=== PATIENT | male | born 1965 | race Two or more races ===

== ENCOUNTER 2023-07-17 08:15 | Emergency (ER) | payer MEDICAID, SELFPAY ==
--- NOTE | 2023-07-17 08:18 | ED.GENADUL_ITS ---
Discharge Plan Disposition Patient Disposition: Home Condition: Stable Discharge Details Clinical Impression: Right sided sciatica Primary Care Provider: None,None ED Provider: Art Aguilar Home Meds and New Rx's Prescriptions: New naproxen [Naprosyn] 500 mg tablet 500 mg PO BID Qty: 30 0RF Discontinued ibuprofen [Advil] 200 mg tablet 800 mg PO DAILY Discharge Instructions Instructions: Sciatica (ED) Additional Instructions: It appears as though you have right-sided sciatica. Cool and/or warm compresses every 2 hours for 20 minutes. A prescription for naproxen has been sent, please take as directed. You may also use [id number] Lidoderm patches and Tylenol as directed. Gentle stretching as tolerated. Please watch for new or worsening symptoms and return to the ER for any concerns. As we discussed, I do recommend contacting your primary care provider to make them aware of your ER visit and need for outpatient follow-up. Regarding your chronic back pain and herniated disc, I do recommend that you get a referral through your primary care provider to [facility] as it sounds as though you are unhappy with your care in [place]. Stand Alone Forms: Work Release HPI General Mode of arrival: ambulatory . Date/Time Provider Initiated Documentation: 07/17/23 08:18 . Limitations to Documentation: no limitations . Information obtained by: patient . History of Present Illness 57 year old M presents to the emergency department with the chief complaint of Right sided leg pain, described as moderate, with intensity rated at 6. Quality is described as aching and sharp, and is localized to the right and lower extremity. Patient extremity. Patient started experiencing this year(s) (2) and it has been intermittent. No relieving factors improve symptom(s), Movement worsens symptoms . Patient notes other (Right foot paresthesias). Patient did receive the following treatments prior to arrival, NSAID (Occasional) Related Data Home Medications Medication Instructions Recorded Confirmed naproxen 500 mg tablet (Naprosyn) 500 mg PO BID #30 tabs 07/17/23 Previous Rx's Medication Instructions Recorded naproxen 500 mg tablet (Naprosyn) 500 mg PO BID #30 tabs 07/17/23 Allergies Allergy/AdvReac Type Severity Reaction Status Date / Time No Known Allergies Allergy Unverified 07/17/23 08:25 Review of Systems Constitutional Constitutional: Denies fever(s) Cardiovascular Cardiovascular: Denies chest pain, Denies leg edema and Denies dyspnea Respiratory Respiratory: Denies dyspnea Gastrointestinal Gastrointestinal: Denies fecal incontinence Genitourinary Genitourinary: Denies urinary hesitancy and Denies urinary incontinence Musculoskeletal Musculoskeletal: Reports back pain, Denies numbness and Reports tingling Integumentary/Breasts Skin/Breast: Denies erythema Neurologic Neurologic: Denies numbness, Reports tingling and Reports paresthesias (Right lower extremity) Exam Const General: cooperative, healthy appearing, comfortable and no acute distress Orientation: alert, awake and oriented x3 [facility] Head: normal to inspection, normocephalic and atraumatic Mouth: moist mucous membranes Eyes Conjunctivae: conjunctivae normal Neck Neck: normal visual inspection, trachea midline and supple Resp Effort & Inspection: normal respiratory effort and able to speak in complete sentences Cardio Rate: regular rate Rhythm: regular rhythm GI Palpation: soft and nontender Back/Spine/Pelvis Back: no CVA tenderness Thoracic/Lumbar Spine: No paraspinal tenderness, No lumbar spinal tenderness, straight leg raise positive (Bilaterally, right worse than left) and other (No midline point tenderness) Pelvis: sciatic notch tenderness on the right Skin General skin exam: no rashes or lesions noted Neuro General: patient alert, patient awake, patient oriented x3, moves all extremities and no focal motor deficits Cognition: normal cognition Speech: speech normal Gait: normal gait Motor: muscle tone normal throughout Sensory Exam: no sensory deficits noted (Sensation intact to light touch.) and other (Patient reports subjective ulcer sensation distal right foot) Extrem General: normal to inspection, full ROM, capillary refill normal, no pedal edema and no calf tenderness Right lower extremity: normal to inspection, full ROM and normal capillary refill (2+ pedal pulse) Psych Appearance: grossly normal Mental Status: mental status grossly normal Medical Decision Making This is a 57-year-old gentleman who reports that he recently moved to this area and has established a PCP but has not had his initial visit yet. He reports chronic low back pain, left worse than right, most of his life. He states that he was diagnosed with lumbar herniated disks for which he saw neurosurgery, states that surgery was recommended but he deferred. He has had previous back i njections which have helped significantly with his discomfort. Today he is reporting right posterior deep buttocks pain that travels down the posterior and lateral aspect of his upper leg and feels like a burning sensation. This has been intermittent over several years and he has never had this evaluated. More recently over the last several months he has noticed it now travels down his entire leg and goes into his foot, causing paresthesias to his distal right foot and all digits. He denies any trauma. He denies any fever, chest pain, shortness of breath, change in bowel or bladder habits, urinary retention, bowel or bladder incontinence. He denies any true numbness or focal weakness. Does admit to paresthesias as above. He states his pain is worse with movement and worse with being on his feet all day long. He was at work this morning, his employer recommended going to the ER for evaluation. He denies any drug use. Clinically he appears well, nontoxic, ambulates steadily. Neuro, vascular, tendon intact right lower extremity. No evidence of cauda equina. Extremely low suspicion for epidural abscess. No evidence of trauma, no indication to pursue advanced imaging. Symptoms are not bilateral, no involvement of the upper extremities, believe his paresthesias are secondary to sciatica, less likely the primary neuropathy. Discussed in length that his symptoms are most consistent with acute right-sided sciatica. Recommend anti-inflammatory, Naprosyn prescription provided. Discussed [id number] Tylenol, Lidoderm patches, gentle stretching, cool and/or warm compresses. We also discussed that this could be progression of his known herniated disks. Recommend PCP follow- up, recommend he contact them later today to make them aware of his ER visit and need for outpatient reevaluation. We did discuss that if symptoms were to persist that potential steroid burst, additional advanced imaging of his lumbar spine, possible injection, etc. were all possible treatment modalities. Also discussed that if he would like to reconsider the potential lumbar back surgery or would like a second opinion, recommend referral be sent from his PCP to [facility] spine. Standard discharge and return precautions were provided. Patient understands, is agreeable to this plan, and has no additional questions or concerns upon discharge. He was encouraged to watch for any new or evolving symptoms and return immediately to the ER. Work note for today provided. This documentation was generated using [employer] Watchation system, please disregard any oddities of phrase or misspellings. Medical Records Medical records narrative: No prior records for review Quality:[facility] Health Related Social Needs: No Data to Display PFSH All Active Problems Right sided sciatica (Acute) Social History Smoking/Tobacco Use Status: Current every day Tobacco Type: cigarettes Smoking risk assessment performed?: Yes Alcohol Intake: never Drug use: Never Substance use type: does not use
[2023-07-17 08:22] VITALS: BP 130/81; PULSE 88; RESP 17; TEMP 36; O2SAT 97
== END 2023-07-17 08:55 | disposition home or self-care (01) ==
PROVIDERS: Emergency Provider Physician Assistant
DX: M54.31 Sciatica, right side (principal); F17.210 Nicotine dependence, cigarettes, uncomplicated
CPT/HCPCS: 99283

== ENCOUNTER 2023-08-21 10:48 | Emergency (ER) | payer MEDICAID, SELFPAY ==
[2023-08-21 10:51] VITALS: BP 130/96; PULSE 93; RESP 18; TEMP 36.3; O2SAT 96
--- NOTE | 2023-08-21 11:26 | W.ED.GENAD ---
Discharge Plan Disposition Patient Disposition: Home Condition: Stable Discharge Details Clinical Impression: Acute right-sided back pain with sciatica ED Provider: Deshawn Pham Home Meds and New Rx's Prescriptions: New lidocaine 5 % adhesive patch,medicated 1 patch topical DAILY Qty: 15 0RF Rx Instructions: leave on most painful area for up to 12 hrs naproxen [Naprosyn] 500 mg tablet 500 mg PO BID Qty: 60 0RF Discharge Instructions Instructions: Sciatica (ED), Lower Back Exercises (ED) Additional Instructions: Please take naproxen as prescribed. Do not take Advil if you are taking naproxen. Please take acetaminophen (tylenol) - 650mg every 6 hours by mouth as needed for pain. Use lidocaine patches as prescribed. Please contact your primary care physician to arrange follow-up. Please follow-up with physical therapy. Avoid activities that worsen pain. Return to the ER immediately for any worsening or new concerning symptoms. Stand Alone Forms: Physical Therapy Referral, Work Release Referrals: [facility] [Provider Group] Discharge Data Discharge Date/Time-TO BE ENTERED AT DEPARTURE: 08/21/23 11:44 HPI General Mode of arrival: ambulatory. Date/Time Provider Initiated Documentation: 08/21/23 11:04. Limitations to Documentation: no limitations. Information obtained by: patient. HPI Narrative: 57-year-old male presents with chief complaint of back pain. Patient states right-sided back pain radiating down his posterior leg to his foot. States pain is worse with seated position. Patient states symptoms started more than a week ago. He has been out of work for the past 1 week. Patient states using ibuprofen and IcyHot without resolution. He is frustrated the pain is ongoing. He would like to get back to work. He has no associated bowel or bladder dysfunction. No fevers. No focal weakness. Patient has not recall any inciting event. No trauma. Related Data Home Medications Medication Instructions Recorded Confirmed lidocaine 5 % topical patch 1 patch topical DAILY #15 ea 08/21/23 naproxen 500 mg tablet (Naprosyn) 500 mg PO BID #60 tabs 08/21/23 Previous Rx's Medication Instructions Recorded lidocaine 5 % topical patch 1 patch topical DAILY #15 ea 08/21/23 naproxen 500 mg tablet (Naprosyn) 500 mg PO BID #60 tabs 08/21/23 Allergies Allergy/AdvReac Type Severity Reaction Status Date / Time No Known Allergies Allergy Unverified 08/21/23 10:54 General Stated Complaint: Nk/Back Pain ARSLAN: 3 Review of Systems All systems reviewed & are unremarkable except as noted in HPI and below Constitutional Constitutional: Denies fever(s) Neurologic Neurologic: Reports as per HPI Exam Const General: cooperative and no acute distress HENMT Mouth: moist mucous membranes Eyes Conjunctivae: normal conjunctivae Sclera: normal sclerae Resp Auscultation: clear to auscultation bilaterally, no rales, no rhonchi and no wheezes Cardio Rate: regular rate and not tachycardic Rhythm: regular rhythm GI Palpation: soft, not firm, no guarding, no masses, not rigid and nontender Back/Spine/Pelvis Back: No erythema, No warmth, No ecchymosis and back tenderness Thoracic/Lumbar Spine: paraspinal tenderness (Lumbar right) and straight leg raise positive Skin General skin exam: no rashes or lesions noted Neuro General: patient alert, patient awake and tone normal Other: Distal motor and neuro intact bilateral lower extremities, no saddle anesthesia Extrem General: no edema Course Vital Signs Vital signs: Vital Signs Temperature 36.3 C L 08/21/23 10:51 Pulse 93 H 08/21/23 10:51 Respiratory Rate 18 08/21/23 10:51 Blood Pressure 130/96 H 08/21/23 10:51 Pulse Oximetry 96 08/21/23 10:51 Temperature 36.3 C L 08/21/23 10:51 Temperature Source Skin 08/21/23 10:51 Pulse 93 H 08/21/23 10:51 Respiratory Rate 18 08/21/23 10:51 Respiratory Effort Normal 08/21/23 10:54 Blood Pressure 130/96 H 08/21/23 10:51 Blood Pressure Position Sitting 08/21/23 10:51 Pulse Oximetry 96 08/21/23 10:51 Oxygen Delivery Method Room Air 08/21/23 10:51 Oxygen Flow Rate 0 08/21/23 10:51 Medical Decision Making 57-year-old male here with symptoms consistent with lumbar radiculopathy with sciatica. No inciting traumatic event. Patient is neurologically intact distally. Suspect disc herniation. Plan for Naprosyn and lidocaine patch. Plan for follow-up with PCP and physical therapy. Usual and customary discharge instructions were reviewed with the patient. Quality:SDOH Health Related Social Needs: No Data to Display PFSH All Active Problems Acute right-sided back pain with sciatica (Acute) Family History Brother Colon cancer Social History Smoking/Tobacco Use Status: Current every day Tobacco Type: cigarettes Smoking risk assessment performed?: Yes Alcohol Intake: current Alcohol Intake frequency: holidays/special occasions only Drug use: Never Substance use type: does not use Adopted: No Household members: significant other Housing: homeless Number of Children: 5 number of grandchildren: 3 Communication Needs: None Education Level: high school Do you need help understanding health information?: Never 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 Pets and animals: No Sexually active: Yes Do you think of yourself as: straight/heterosexual Current gender identity: male What is your relationship status?: living with partner How often do you talk on the phone with friends or family?: three or more times per week How often do you get together with friends or relatives?: never Do you belong to any clubs or organized social groups?: no Panel score (0-1 are the most socially isolated patients): 2 Jenny/Religious: Gnosticist Special jenny needs: No Seatbelt use: always Helmet use: Yes Drive intox 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
== END 2023-08-21 11:44 | disposition home or self-care (01) ==
PROVIDERS: Emergency Provider Student in an Organized Health Care Education/Training Program
DX: M54.41 Lumbago with sciatica, right side (principal); F17.210 Nicotine dependence, cigarettes, uncomplicated
CPT/HCPCS: 99283

== ENCOUNTER 2023-10-26 13:58 | Outpatient (CLI) | payer MEDICAID, SELFPAY ==
[2023-10-26 14:19] LABS: HCT 44.2 % (40.0-50.0); HGB 15.3 g/dL (13.5-17.5); MCH 29.3 pg (27.0-33.0); MCHC 34.6 % (32.0-36.0); MCV 85 fL (80-95); MPV 9.4 fL (8.0-11.0); Platelet Count 341 10^3/uL (130-400); RBC 5.22 10^6/uL (4.36-5.78); RDW 12.1 % (11.8-14.1); RDW-SD 36.6 fL; WBC 10.43 10^3/uL (4.4-10.8)
[2023-10-26 16:29] LABS: ALT 30 U/L (16-63); AST 17 U/L (15-37); Albumin 4.1 g/dL (3.4-5.0); Alkaline Phosphatase 138 U/L (46-116); Anion Gap 9.8 mmol/L (3-11); BUN 24 mg/dL (7-18); Bilirubin, Total 0.55 mg/dL (0.2-1.0); CO2 27.2 mmol/L (21.0-32.0); CREATININE 1.1 mg/dL (0.70-1.30); Calcium 9.7 mg/dL (8.5-10.1); Calculated LDL 186 mg/dL (<100); Chloride 102 mmol/L (98-107); Cholesterol 306 mg/dL (<200); Estimated GFR 79.28 (mL/min/1.73m2); Glucose 122 mg/dL (74-106); HDL Cholesterol 51 mg/dL (40-60); Potassium 4.2 mmol/L (3.5-5.1); Sodium 139 mmol/L (136-145); Total Protein 8.2 g/dL (6.4-8.2); Triglyceride 349 mg/dL (<150); Vitamin D 25 Total 11.6 ng/mL (30-100)
[2023-10-27 09:17] LABS: PSA, Screening 0.4 ng/mL (<=3.5)
== END 2023-10-26 13:59 | disposition home or self-care (01) ==
LOC: LBO 13:59
PROVIDERS: PCP Student in an Organized Health Care Education/Training Program; Visit Provider Student in an Organized Health Care Education/Training Program
DX: Z12.5 Encounter for screening for malignant neoplasm of prostate (principal); Z13.220 Encounter for screening for lipoid disorders; K90.9 Intestinal malabsorption, unspecified
CPT/HCPCS: 36415; 80053; 80061; 82306; 84153; 85027

== ENCOUNTER 2023-12-11 19:55 | Emergency (ER) | payer MEDICAID, SELFPAY ==
[2023-12-11 20:00] VITALS: BP 123/76; PULSE 94; RESP 20; TEMP 36.1; O2SAT 95
--- NOTE | 2023-12-11 20:06 | ED.GENADUL_ITS ---
Discharge Plan Disposition Patient Disposition: Home Condition: Stable Discharge Details Clinical Impression: Bronchitis Primary Care Provider: Alisia Chapman ED Provider: Suha Hartman Home Meds and New Rx's Prescriptions: New prednisone 20 mg tablet 60 mg PO DAILY 5 Days Qty: 15 0RF benzonatate 100 mg capsule 100 mg PO BID-TID PRN (Reason: cough) 7 Days Qty: 14 0RF Rx Instructions: Take one capsule 2 to 3 times a day as needed for cough No Action ibuprofen 600 mg tablet 600 mg PO Q8H PRN (Reason: inflammation & pain) Qty: 90 1RF Rx Instructions: Take with real food (full meal; cheese; peanut-butter) & WATER. HOLD if stomach pain. lidocaine 5 % adhesive patch,medicated 2 patch topical DAILY Qty: 30 2RF Rx Instructions: leave on most painful area for up to 12 hrs diclofenac sodium [Voltaren Arthritis Pain] 1 % gel 4 g topical QID Qty: 100 3RF Rx Instructions: apply to RT lower back, rt buttock for inflammation/pain lidocaine 5 % adhesive patch,medicated 1 patch topical DAILY Qty: 15 0RF Rx Instructions: leave on most painful area for up to 12 hrs naproxen [Naprosyn] 500 mg tablet 500 mg PO BID Qty: 60 0RF Discharge Instructions Instructions: Bronchitis, Adult ED Additional Instructions: At this time the chest x-ray shows bronchitis. Please take the albuterol inhaler 1 or 2 puffs every 4-6 hours as needed for wheezing and/or cough. Use the Tessalon Perles as directed for cough. Also take prednisone 3 tablets a day for the next 5 days. Follow up with primary care provider in 3-5 days. Return to ED sooner if any worsening or concerns. Please take Tylenol or Ibuprofen with food every 4-6 hours as needed for pain and swelling. COVID flu and RSV are all negative. Stand Alone Forms: Work Release Referrals: Alisia Chapman DO [Primary Care Provider] - 3 days HPI General Mode of arrival: ambulatory . Date/Time Provider Initiated Documentation: 12/11/23 20:05 . Limitations to Documentation: no limitations . Information obtained by: patient, RN notes reviewed and old records reviewed . HPI Narrative: 58 year old male presents to the ED with chief complaint of pain with coughing which began this am. He denies chest pain and is refusing an EKG upon arrival. Patient is a smoker. Denies any alcohol. No other significant past medical history. Related Data Home Medications ?Medication ?Instructions ?Recorded ?Confirmed lidocaine 5 % topical patch 1 patch topical DAILY #15 ea 08/21/23 09/01/23 naproxen 500 mg tablet (Naprosyn) 500 mg PO BID #60 tabs 08/21/23 09/01/23 diclofenac sodium 1 % topical gel 4 g topical QID #100 grams 09/01/23 09/01/23 (Voltaren Arthritis Pain) ibuprofen 600 mg tablet 600 mg PO Q8H PRN inflammation & 09/01/23 09/01/23 pain #90 tabs lidocaine 5 % topical patch 2 patch topical DAILY #30 ea 09/01/23 09/01/23 benzonatate 100 mg capsule 100 mg PO BID-TID PRN cough 7 days 12/11/23 #14 caps prednisone 20 mg tablet 60 mg (3 x 20 mg) PO DAILY 5 days 12/11/23 #15 tabs Previous Rx's ?Medication ?Instructions ?Recorded lidocaine 5 % topical patch 1 patch topical DAILY #15 ea 08/21/23 naproxen 500 mg tablet (Naprosyn) 500 mg PO BID #60 tabs 08/21/23 diclofenac sodium 1 % topical gel 4 g topical QID #100 grams 09/01/23 (Voltaren Arthritis Pain) ibuprofen 600 mg tablet 600 mg PO Q8H PRN inflammation & 09/01/23 pain #90 tabs lidocaine 5 % topical patch 2 patch topical DAILY #30 ea 09/01/23 benzonatate 100 mg capsule 100 mg PO BID-TID PRN cough 7 days 12/11/23 #14 caps prednisone 20 mg tablet 60 mg (3 x 20 mg) PO DAILY 5 days 12/11/23 #15 tabs Allergies Allergy/AdvReac Type Severity Reaction Status Date / Time Penicillins Allergy Severe critical Unverified 12/11/23 20:05 per chart Hx General Stated Complaint: RespSymp ARSLAN: 4 Review of Systems All systems reviewed & are unremarkable except as noted in HPI and below Cardiovascular Cardiovascular: Denies chest pain, Denies rapid heart rate and Denies pedal edema Respiratory Respiratory: Reports cough, Denies hemoptysis and Reports wheezing Gastrointestinal Gastrointestinal: Denies diarrhea, Denies nausea and Denies vomiting Allergic/Immunologic Allergic/Immunologic: Reports wheezing Exam Narrative Exam Narrative: Constitutional: Alert and oriented x3. Appears stated age. Normal body habitus. Head: Normocephalic, no trauma. Eyes: Pupils PERRL, Red reflex noted, EOM's intact. Eyelids symmetrical without lesions, discharge, or swelling. ENT: Bilateral TM's WNL, External ear normal to inspection, no mastoid TTP, swelling, or erythema, Nasal turbinates WNL, no nasal discharge. Normal d entition, Posterior pharynx WNL, no exudate. Chest: RRR, Normal S1, S2, distal pulses intact. Resp: Mild scattered expiratory wheezes throughout. Abdomen: Soft, non-distended, Normoactive bowel sounds all 4 quads. Musculoskeletal: Normal gait, Moves all 4 extremities without difficulty. Skin: No suspicious rashes or lesions. Capillary refill less than 2 sec. Neurologic: Cranial nerves II-XII intact. Alert and oriented x 3. Motor: No deficits noted. Sensory: Intact bilaterally all 4 extremities. Hematologic/Lymphatic: No ecchymosis, no lymphadenopathy. Course Vital Signs Vital signs: Vital Signs Temperature 36.1 C L 12/11/23 20:00 Pulse 94 H 12/11/23 20:00 Respiratory Rate 20 12/11/23 20:00 Blood Pressure 123/76 12/11/23 20:00 Pulse Oximetry 95 12/11/23 20:00 Temperature 36.1 C L 12/11/23 20:00 Temperature Source Temporal Artery Scan 12/11/23 20:00 Pulse 94 H 12/11/23 20:00 Respiratory Rate 20 12/11/23 20:00 Respiratory Effort Normal, Non-Labored 12/11/23 20:03 Blood Pressure 123/76 12/11/23 20:00 Blood Pressure Position Sitting 12/11/23 20:00 Pulse Oximetry 95 12/11/23 20:00 Oxygen Delivery Method Room Air 12/11/23 20:00 Oxygen Flow Rate 0 12/11/23 20:00 Pain Level 5 12/11/23 20:00 Medical Decision Making 58 year old male presents to the ED with chief complaint of pain with coughing which began this am. He denies chest pain and is refusing an EKG upon arrival. Fluvid negative, Mild scattered expiratory wheezing noted throughout, is a daily smoker. Reports began this am after getting off work. he works at a [employer]. Patient given Tessalon Perles, albuterol inhaler and prednisone 60 mg since 5 days. Discussed home care follow-up care. Patient is requesting a work note. This text was generated using [employer] dictation system, please disregard any oddities of phrase or misspellings. Imaging Data Radiologic Study: Imaging: X-Ray Radiologist's impression: TECHNIQUE: Imaging protocol: Radiologic exam of the chest. Views: 2 views. COMPARISON: No relevant prior studies available. FINDINGS: Lungs: Mild central interstitial thickening. No airspace consolidation. Pleural spaces: No pleural effusion. No pneumothorax. Heart/Mediastinum: No cardiomegaly. Bones/joints: No acute fracture. IMPRESSION: Interstitial disease suggesting bronchitis or atypical infection. Thank you for allowing us to participate in the care of your patient. Dictated and Authenticated by: Ilda Paula MD Quality:SDOH Health Related Social Needs: Health related social needs transpo insecurity PFSH All Active Problems (Updated 12/11/23 @ 21:25 by Suha Hartman NP) Bronchitis (Acute) Medical History (Updated 12/11/23 @ 21:25 by Suha Hartman NP) COVID-19 08/20/21 ([place]) Hx of acute bronchitis 08/04/23, [place] Family History Brother Colon cancer Social History Smoking/Tobacco Use Status: Current every day Tobacco Type: cigarettes Smoking risk assessment performed?: Yes Alcohol Intake: current Alcohol Intake frequency: holidays/special occasions only Drug use: Never Substance use type: does not use Adopted: No Household members: significant other Housing: homeless Number of Children: 5 number of grandchildren: 3 Communication Needs: None Education Level: high school Do you need help understanding health information?: Never 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 Pets and animals: No Sexually active: Yes Do you think of yourself as: straight/heterosexual Current gender identity: male What is your relationship status?: living with partner How often do you talk on the phone with friends or family?: three or more times per week How often do you get together with friends or relatives?: never Do you belong to any clubs or organized social groups?: no Panel score (0-1 are the most socially isolated patients): 2 Jenny/Pentecostal: Latter-Day Special jenny needs: No Seatbelt use: always Helmet use: Yes Drive intox or ride w/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
[2023-12-11 20:14] VITALS: BP 123/76; PULSE 94; RESP 26; TEMP 36.1; O2SAT 95
--- NOTE | 2023-12-11 20:38 | DI.RAD_ITS ---
Exam(s) XR CHEST 2V PA LATERAL EXAM: XR CHEST 2V PA LATERAL CLINICAL HISTORY: Cough TECHNIQUE: 2D digital imaging was performed. Two views. COMPARISON: No exams were available for comparison FINDINGS: HEART: Normal size. Aorta: Not dilated. PULMONARY VASCULATURE: Normal. MEDIASTINUM: Unremarkable. LUNGS: No focal area of consolidation. Increased interstitial markings which could which could be ch ronic versus mild interstitial infiltrates. PLEURAL SPACE: No pleural effusion or pneumothorax. BONE:Unremarkable for age. SOFT TISSUES: Unremarkable. IMPRESSION: Question chronic fibrotic changes versus interstitial infiltrates related to atypical infection. DATA REPOSITORY: RADIATION DOSE DELIVERED:
[2023-12-11 20:47] LABS: COVID-19 PCR Negative (Negative); Influenza A PCR Negative (Negative); Influenza B PCR Negative (Negative); RSV PCR Negative (Negative)
[2023-12-11 20:49] LABS: Source NASOPHARYNX
[2023-12-11] MEDS: Inhaler, Assist Device 1 EACH MC (21:08)
[2023-12-11] MEDS: predniSONE 20 MG TAB 60 MG PO (21:08)
[2023-12-11] MEDS: Benzonatate 100 MG CAP PO ×2 (21:08→21:38)
[2023-12-11] MEDS: Albuterol HFA 8 GM 60 PUFF INH IH (21:08)
--- NOTE | 2023-12-11 21:22 | DI.VRAD_ITS ---
PROCEDURE INFORMATION: Exam: XR Chest Exam date and time: 12/11/2023 8:35 PM Age: 58 years old Clinical indication: Chest pressure; Patient HX: Cough, chest pain TECHNIQUE: Imaging protocol: Radiologic exam of the chest. Views: 2 views. COMPARISON: No relevant prior studies available. FINDINGS: Lungs: Mild central interstitial thickening. No airspace consolidation. Pleural spaces: No pleural effusion. No pneumothorax. Heart/Mediastinum: No cardiomegaly. Bones/joints: No acute fracture. IMPRESSION: Interstitial disease suggesting bronchitis or atypical infection. Dictated and Authenticated by: Ilda Paula MD. Ordering:BRITNEY Borden MD
== END 2023-12-11 21:40 | disposition home or self-care (01) ==
LOC: ER 21:28 → RED 21:40
PROVIDERS: Emergency Provider Registered Nurse Emergency; PCP Student in an Organized Health Care Education/Training Program
DX: J40 Bronchitis, not specified as acute or chronic (principal)
CPT/HCPCS: 87637; 99284; 71046; J7512

== ENCOUNTER 2023-12-25 12:36 | Emergency (ER) | payer MEDICAID, SELFPAY ==
[2023-12-25 12:39] VITALS: BP 110/77; PULSE 89; RESP 16; TEMP 36.4; O2SAT 100
--- NOTE | 2023-12-25 12:45 | DI.RAD_ITS ---
Exam(s) XR CHEST 2V PA LATERAL EXAM: XR CHEST 2V PA LATERAL CLINICAL HISTORY: cough TECHNIQUE: 2D digital imaging was performed of the chest. Two images were obtained. PA and lateral views were obtained. COMPARISON: CR,XR XR CHEST 2V PA LATERAL from 12/11/2023 FINDINGS: MEDIASTINUM: Normal. HEART: Normal. PULMONARY VASCULATURE: Normal. LUNGS: There has been no change in appearance of the lungs compared to the prior examination. There does appear to be a fine background interstitial process which may be chronic. No focal consolidatin g infiltrates are seen. PLEURAL SPACE: No pleural effusion or pneumothorax. BONE:Within normal limits for the patient's age. OTHER FINDINGS:Normal. IMPRESSION: Unchanged appearance of the chest x-ray since 12/11/2023. There has been no progression. There is a fine interstitial process seen in the lungs bilaterally. This may be chronic but an pneumonitis or i nterstitial edema cannot be excluded. Please correlate clinically. DATA REPOSITORY: RADIATION DOSE DELIVERED:
--- NOTE | 2023-12-25 13:39 | ED.GENADUL_ITS ---
Discharge Plan Disposition Patient Disposition: Home Condition: Stable Discharge Details Clinical Impression: Pneumonia Primary Care Provider: Alisia Chapman ED Provider: Deshawn Pham Home Meds and New Rx's Prescriptions: New doxycycline hyclate 100 mg tablet 100 mg PO BID Qty: 13 0RF amoxicillin 500 mg tablet 1,000 mg PO TID Qty: 40 0RF Continued lidocaine 5 % adhesive patch,medicated 2 patch topical DAILY Qty: 30 2RF Rx Instructions: leave on most painful area for up to 12 hrs diclofenac sodium [Voltaren Arthritis Pain] 1 % gel 4 g topical QID Qty: 100 3RF Rx Instructions: apply to RT lower back, rt buttock for inflammation/pain naproxen [Naprosyn] 500 mg tablet 500 mg PO BID Qty: 60 0RF Discontinued ibuprofen 600 mg tablet 600 mg PO Q8H PRN (Reason: inflammation & pain) Qty: 90 1RF Rx Instructions: Take with real food (full meal; cheese; peanut-butter) & WATER. HOLD if sto mach pain. Discharge Instructions Instructions: Community-acquired pneumonia in adults Additional Instructions: Please drink plenty of fluid and allow for plenty of rest. Take full course of antibiotic as prescribed. Please contact your primary care physician to arrange follow-up. Return to the ER immediately for any worsening or new concerning symptoms. Stand Alone Forms: Work Release Referrals: Alisia Chapman DO [Primary Care Provider] - [facility] General Mode of arrival: ambulatory . Date/Time Provider Initiated Documentation: 12/25/23 12:58 . Limitations to Documentation: no limitations . Information obtained by: patient . HPI Narrative: 58-year-old male smoker presents with cough. Patient notes persistent cough for the past 2 weeks, now productive of dark green phlegm. Patient notes ribs and head hurts from excessive coughing. Patient was seen here on 12/10 and diagnosed with bronchitis. He was started on prednisone and Tessalon Perles at that time. No resolution with that treatment. Related Data Home Medications ?Medication ?Instructions ?Recorded ?Confirmed naproxen 500 mg tablet (Naprosyn) 500 mg PO BID #60 tabs 08/21/23 12/25/23 diclofenac sodium 1 % topical gel 4 g topical QID #100 grams 09/01/23 12/25/23 (Voltaren Arthritis Pain) lidocaine 5 % topical patch 2 patch topical DAILY #30 ea 09/01/23 12/25/23 amoxicillin 500 mg tablet 1,000 mg (2 x 500 mg) PO TID #40 12/25/23 tabs doxycycline hyclate 100 mg tablet 100 mg PO BID #13 tabs 12/25/23 Previous Rx's ?Medication ?Instructions ?Recorded naproxen 500 mg tablet (Naprosyn) 500 mg PO BID #60 tabs 08/21/23 diclofenac sodium 1 % topical gel 4 g topical QID #100 grams 09/01/23 (Voltaren Arthritis Pain) lidocaine 5 % topical patch 2 patch topical DAILY #30 ea 09/01/23 amoxicillin 500 mg tablet 1,000 mg (2 x 500 mg) PO TID #40 12/25/23 tabs doxycycline hyclate 100 mg tablet 100 mg PO BID #13 tabs 12/25/23 Allergies Allergy/AdvReac Type Severity Reaction Status Date / Time Penicillins Allergy Mild GI upset Unverified 12/25/23 14:03 General Stated Complaint: RespSymp ARSLAN: 4 Review of Systems All systems reviewed & are unremarkable except as noted in HPI and below Constitutional Constitutional: Denies fever(s) Respiratory Respiratory: Reports cough Exam Const General: cooperative and no acute distress HENHI Mouth: moist mucous membranes Eyes Conjunctivae: normal conjunctivae Sclera: normal sclerae Neck Neck: trachea midline and supple Resp Auscultation: rhonchi lower bilaterally and no wheezes Cardio Rate: regular rate and not tachycardic Rhythm: regular rhythm GI Palpation: soft, not firm, no guarding, no masses, not rigid and nontender Skin General skin exam: no rashes or lesions noted Neuro General: patient alert, patient awake and tone normal Extrem General: no edema Psych Appearance: grossly normal Mental Status: mental status grossly normal Course Vital Signs Vital signs: Vital Signs Temperature 36.4 C L 12/25/23 12:39 Pulse 89 12/25/23 12:39 Respiratory Rate 16 12/25/23 12:39 Blood Pressure 110/77 12/25/23 12:39 Pulse Oximetry 100 12/25/23 12:39 Temperature 36.4 C L 12/25/23 12:39 Temperature Source Tympanic 12/25/23 12:39 Pulse 89 12/25/23 12:39 Respiratory Rate 16 12/25/23 12:39 Blood Pressure 110/77 12/25/23 12:39 Blood Pressure Position Sitting 12/25/23 12:39 Pulse Oximetry 100 12/25/23 12:39 Oxygen Delivery Method Room Air 12/25/23 12:39 Oxygen Flow Rate 0 12/25/23 12:39 Medical Decision Making 58-year-old male here with 2 to 3 weeks of cough, worsening and now productive. Patient was seen here on 12-11-2023 and diagnosed with bronchitis. Course of prednisone and Tessalon Perles did not resolve symptoms. Patient is saturating well in no respiratory distress. He does have frequent coughing on exam. Repeat x-ray was reviewed and interpreted by radiology:nchanged appearance of the chest x-ray since 12/11/2023. There has been no progression. There is a fine interstitial process seen in the lungs bilaterally. This may be chronic but an pneumonitis or interstitial edema cannot be excluded. Please correlate clinically. I am concerned with progression of symptoms that this is an underlying bacterial process. Plan to treat with doxycycline and high-dose amoxicillin. I have initiated treatment here in the emergency department and sent prescription to pharmacy. Patient was encouraged to follow-up with his primary care physician. Usual and customary discharge instructions were reviewed with the patient. Medical Records Medical records reviewed: Yes I reviewed the patient's medical records. Lab Data Lab results reviewed: Yes I reviewed the patient's lab results. Labs: Laboratory Tests Range/Units 12/25/23 13:05 COVID-19 Source Nasopharynx SARS-CoV-2 (PCR) (Negative) Negative Influenza Type A (PCR) (Negative) Negative Influenza Type B (PCR) (Negative) Negative RSV (PCR) (Negative) Negative Quality:SDOH Health Related Social Needs: Health related social needs transpo insecurity PFSH All Active Problems (Updated 12/25/23 @ 13:45 by Deshawn Pham MD) Pneumonia (Acute) Bronchitis (Acute) Medical History COVID-19 08/20/21 ([place]) Hx of acute bronchitis 08/04/23, [place] Family History Brother Colon cancer Social History Smoking/Tobacco Use Status: Current every day Tobacco Type: cigarettes Smoking risk assessment performed?: Yes Alcohol Intake: current Alcohol Intake frequency: holidays/special occasions only Drug use: Never Substance use type: does not use Adopted: No Household members: significant other Housing: homeless Number of Children: 5 number of grandchildren: 3 Communication Needs: None Education Level: high school Do you need help understanding health information?: Never current occupation: [employer] Pets and animals: No Sexually active: Yes Do you think of yourself as: straight/heterosexual Current gender identity: male What is your relationship status?: living with partner How often do you talk on the phone with friends or family?: three or more times per week How often do you get together with friends or relatives?: never Do you belong to any clubs or organized social groups?: no Panel score (0-1 are the most socially isolated patients): 2 Jenny/Hinduism: Cheondoism Special jenny needs: No Seatbelt use: always Helmet use: Yes Drive intox or ride w/intox 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
[2023-12-25 13:50] LABS: COVID-19 PCR Negative (Negative); Influenza A PCR Negative (Negative); Influenza B PCR Negative (Negative); RSV PCR Negative (Negative); Source Nasopharynx
[2023-12-25 13:59] VITALS: BP 115/78; TEMP 36.8; O2SAT 98
[2023-12-25] MEDS: Doxycycline Hyclate 100 MG CAP PO (14:01)
[2023-12-25] MEDS: Amoxicillin 500 MG CAP 1000 MG PO (14:01)
== END 2023-12-25 14:18 | disposition home or self-care (01) ==
PROVIDERS: Emergency Provider Student in an Organized Health Care Education/Training Program; PCP Student in an Organized Health Care Education/Training Program
DX: J18.9 Pneumonia, unspecified organism (principal); F17.210 Nicotine dependence, cigarettes, uncomplicated
CPT/HCPCS: 87637; 99284; 71046; 99283

== ENCOUNTER 2024-03-25 14:59 | Outpatient (CLI) | payer MEDICAID, SELFPAY ==
--- NOTE | 2024-03-25 12:45 | DI.US_ITS ---
Exam(s) US AAA SCREENING EXAM: US AAA SCREENING CLINICAL HISTORY: eval for aneurysm in cigarette smoker, F17.210 COMPARISON: FINDINGS: Abdominal Aorta: Proximal: 3.1 x 2.8 cm Mid: 2.2 x 2.2 cm Distal: 2.1 x 2.1 cm Iliac's: Right: 1.3 x 1.3 cm Left: 1.3 x 1.3 cm No significant atherosclerotic disease is seen. IMPRESSION: Proximal abdominal aorta is at the upper limits of normal in size. DATA REPOSITORY:
--- NOTE | 2024-03-25 13:16 | DI.CTLCSR_ITS ---
Exam(s) CT CHEST LUNG CANCER SCREEN EXAM: CT CHEST LUNG CANCER SCREEN CLINICAL HISTORY: Screening for lung cancer, cigarette smoker, F17.210 TECHNIQUE: Imaging Protocol: Axial computed tomography images with coronal and sagittal reformatted images were created and reviewed. Lung Computer Aided Detection (CAD) was utilized. COMPARISON: CR XR CHEST 2V PA LATERAL from 12/25/2023 FINDINGS: Tracheobronchial tree: Patent where visualized. No bronchiectasis. Pulmonary parenchyma: No consolidation or dominant measurable mass. No architectural distortion. Lung Nodules: There is a 3 mm nodule in the anterior aspect of the right lower lobe (series 2, image 77). Mediastinum and Coco: No dominant adenopathy or fluid collection. The esophagus is unremarkable. Thyroid gland: Unremarkable. Lymph nodes: Unremarkable. Pleura: No effusion or pneumothorax. Heart: The heart is not dilated. Single-vessel coronary artery calcification is present. No pericard ial effusion. Aorta: Thoracic aorta non-dilated.Atherosclerotic calcification is present. Upper abdomen: Unremarkable. Soft Tissues: Unremarkable. Bones: Within normal limits. There is a bone island in the T2 vertebra. IMPRESSION: 3 mm right lower lobe pulmonary nodule. Lung RADS Cat 2 - Benign Appearance / Behavior: Nodules with a very low likelihood of becoming a clin ically active cancer due to size or lack of growth Lung-RADS 1.0 CATEGORIES: Category 0 - Prior chest CT exam(s) being located for comparison. Category 1 - Annual screening in 12 months. No nodules or definitely benign nodules. Category 2 - Annual screening in 12 months. Benign appearance. Nodules with low likelihood of becomin g active cancer. Category 3 - 6-month follow-up. Probably benign. Short-term follow-up suggested. Nodules with low lik elihood of becoming active cancer. Category 4A - 3-month follow-up and CT/PET if >8 mm in size. Suspicious finding. Findings which requi re additional testing. Category 4B - Findings which require additional testing and tissue sampling. Suspicious finding. Category 4X - Category 3 or 4 nodules with additional features or imaging findings that increases the suspicion of malignancy. Modifier S- Potentially clinically significant finding. (Non lung cancer) RADIATION DOSE DELIVERED: 94.99mGy.cm Total DLP 94.99mGy.cmTotal DLP DATA REPOSITORY: All CT scans at this facility are submitted to the National Radiology Data Registry (NRDR) Dose Index Registry (DIR) with the [employer] ([employer]). RADIATION OPTIMIZATION: All CT scans at this facility use at least one of these dose optimization te chniques: automated exposure control; mA and/or kV adjustment per patient size (includes targeted exa ms where dose is matched to clinical indication); or iterative reconstruction.
== END 2024-03-25 15:19 ==
PROVIDERS: PCP Student in an Organized Health Care Education/Training Program; Visit Provider Student in an Organized Health Care Education/Training Program
DX: F17.210 Nicotine dependence, cigarettes, uncomplicated (principal); Z12.2 Encounter for screening for malignant neoplasm of respiratory organs; R91.8 Other nonspecific abnormal finding of lung field
CPT/HCPCS: 71271; 76706

== ENCOUNTER 2024-04-06 14:33 | Emergency (ER) | payer MEDICAID, SELFPAY ==
[2024-04-06] VITALS (18 sets, daily range): BP systolic 115–150; BP diastolic 58–82; PULSE 70–86; RESP 13–23; TEMP 36.3; O2SAT 93–99
--- NOTE | 2024-04-06 14:45 | RT.EKG_ITS ---
APPROVED REPORT Exam: Resting ECG Reason for Exam: chest pain Patient Location: E HR:77 bpm ECG Measurements Heart Rate 77 AXIS WI 145 P 62 QRSd 89 QRS 18 QT 371 T 22 QTc 419 Conclusion Sinus rhythm...normal P axis, V-rate 60- 99 Probable left atrial enlargement...P >50mS, <-0.10mV V1 I have reviewed and interpreted ECG and agree with software generated interpretation.
--- NOTE | 2024-04-06 14:45 | DI.RAD_ITS ---
Exam(s) XR CHEST 2V PA LATERAL EXAM: XR CHEST 2V PA LATERAL CLINICAL HISTORY: right chest pain. TECHNIQUE: 2D digital imaging was performed. COMPARISON: CR XR CHEST 2V PA LATERAL from 12/25/2023 FINDINGS: 2 views: Heart size is normal. The mediastinum is not widened. There mildly increased interstitial markings again noted both lung reddy but no new confluent infilt rates nor pleural effusions. No pulmonary edema. No pneumothorax. No acute fractures evident. IMPRESSION: No acute pulmonary findings.Mild increased interstitial markings again noted in both lung reddy. No pleural effusions. DATA REPOSITORY: RADIATION DOSE DELIVERED:
--- NOTE | 2024-04-06 15:05 | W.ED.GENAD ---
Discharge Plan Disposition Patient Disposition: Home Condition: Good Discharge Details Clinical Impression: Asthma, Chest discomfort Primary Care Provider: Alisia Chapman ED Provider: Ash Huitron Home Meds and New Rx's Prescriptions: New prednisone 50 mg tablet 50 mg PO DAILY Qty: 4 0RF No Action lidocaine 5 % adhesive patch,medicated 2 patch topical DAILY Qty: 30 2RF Rx Instructions: leave on most painful area for up to 12 hrs cholecalciferol (vitamin D3) 1,250 mcg (50,000 unit) capsule 1,250 mcg PO QWEEK Qty: 10 0RF esomeprazole magnesium [Nexium] 40 mg capsule,delayed release(DR/EC) 40 mg PO DAILY Qty: 30 1RF ibuprofen 600 mg tablet 600 mg PO Q8H PRN (Reason: inflammation & pain) Qty: 90 1RF Rx Instructions: Take with real food (full meal; cheese; peanut-butter) & WATER. HOLD if stomach pain. Discharge Instructions Instructions: Asthma, Adult ED Additional Instructions: At this time your workup is returned very reassuring. There is no signs of heart attack, significant blood clot, cancer, popped lung, or other significant abnormality. However you do demonstrate signs and symptoms notably concerning for asthma. Please continue to avoid all tobacco use and smoking. Please take the Symbicort inhaler, 2 puffs every 12 hours for the next 1 to 2 weeks. Please take the steroid as prescribed. It has been sent to your pharmacy on file. If you notice any worsening of your symptoms, or any new symptoms such as vomiting, diarrhea, fever, chills, shortness of breath, chest pain, numbness, weakness, or fainting , please return immediately to the emergency department for reevaluation. Please follow up with your primary care provider as soon as possible for reassessment and reevaluation. As always, it was a pleasure participating in your medical care today. Referrals: Alisia Chapman DO [Primary Care Provider] - [facility] General Date/Time Provider Initiated Documentation: 04/06/24 14:42. HPI Narrative: 58-year-old male with past medical history of GERD, who works at [employer], with no other significant past medical history presents today for evaluation of right chest pain. Patient states that he developed some right chest and flank pain about 2 weeks ago, it came on on its own. He denies any new or atypical heavy lifting or movement. He denies any inciting event. He states that he was initially gradual but over the last few days it has become quite severe. It is worse when he breathes, it is located in the right chest. He denies any cough fever or chills. He does smoke and he states that he has stopped this because of the pain. He has been taking significant amounts of ibuprofen fairly regularly and this has not improved the symptoms. He denies any dysuria or hematuria. He denies any history of kidney stones. He denies any trauma to the chest. No other complaints at this time. No recent long trips surgeries or procedures. No known history of cardiac disease. He denies any focal exertional component, but states that when he moves his right chest that notably worsens his symptoms. It is improved when he lays down on the right-hand side. Of note he was seen by his primary care provider 8 days ago, and at that time his pain appeared to be much lower in the back, it was more concern for a musculoskeletal component the low lumbar region. However now the pain is transition to the area around the scapula. There was a lung nodule noted on chest x-ray. Related Data Home Medications ?Medication ?Instructions ?Recorded ?Confirmed lidocaine 5 % topical patch 2 patch topical DAILY #30 ea 09/01/23 04/06/24 esomeprazole magnesium 40 mg 40 mg PO DAILY #30 caps 03/10/24 04/06/24 capsule,delayed release (Nexium) cholecalciferol (vitamin D3) 1,250 1,250 mcg PO QWEEK #10 caps 03/29/24 04/06/24 mcg (50,000 unit) capsule ibuprofen 600 mg tablet 600 mg PO Q8H PRN inflammation & 04/02/24 04/06/24 pain #90 tabs prednisone 50 mg tablet 50 mg PO DAILY #4 tabs 04/06/24 Previous Rx's ?Medication ?Instructions ?Recorded lidocaine 5 % topical patch 2 patch topical DAILY #30 ea 09/01/23 esomeprazole magnesium 40 mg 40 mg PO DAILY #30 caps 03/10/24 capsule,delayed release (Nexium) cholecalciferol (vitamin D3) 1,250 1,250 mcg PO QWEEK #10 caps 03/29/24 mcg (50,000 unit) capsule ibuprofen 600 mg tablet 600 mg PO Q8H PRN inflammation & 04/02/24 pain #90 tabs prednisone 50 mg tablet 50 mg PO DAILY #4 tabs 04/06/24 Allergies Allergy/AdvReac Type Severity Reaction Status Date / Time Penicillins Allergy Mild GI upset Verified 04/06/24 14:40 General Stated Complaint: FlankPain ARSLAN: 3 Exam Narrative Exam Narrative: 1.Const: Well-nourished, Well-developed, appearing stated age 2.Eyes: PERRL, no conjunctival injection, and symmetrical lids. 3.ENT: Atraumatic external nose and ears. Moist MM. Neck: Symmetric, trachea midline, No thyromegaly. 4.CVS: +S1/S2, Peripheral pulses 2+ and equal in all extremities. Brisk capillary refill in all extremities. 5.RESP: Unlabored respiratory effort. Mild wheezes throughout. No rhonchi or rales. On palpations the patient does have subjective worsening minimally of the pain on deep palpation of the right posterior lateral ribs of the right upper chest. No CVA tenderness. No midline spinal tenderness for cervical thoracic or lumbar spine. No focal point of rib tenderness though. 6.GI: Soft, Nontender/Nondistended, No hepatosplenomegaly. No guarding or rebound. 7.MSK: Normocephalic/Atraumatic, Extremities w/o deformity or ttp No cyanosis or clubbing, Normal movement of all extremities 8.Skin: Warm, Dry. No rashes or lesions. 9.Neuro: light coil winder II-XII grossly intact. Sensation grossly intact, no focal neurologic deficits. 10.Psych: (AAO) x3. Appropriate mood and affect Course Vital Signs Vital signs: Vital Signs Temperature 36.3 C L 04/06/24 14:34 Pulse 85 04/06/24 14:34 Respiratory Rate 16 04/06/24 14:34 Blood Pressure 132/77 04/06/24 14:34 Temperature 36.3 C L 04/06/24 14:34 Temperature Source Oral 04/06/24 14:34 Pulse 85 04/06/24 14:34 Respiratory Rate 16 04/06/24 14:34 Blood Pressure 132/77 04/06/24 14:34 Blood Pressure Position Sitting 04/06/24 14:34 Oxygen Delivery Method Room Air 04/06/24 14:34 Oxygen Flow Rate 0 04/06/24 14:34 Pain Level 10 04/06/24 14:34 Medical Decision Making 58-year-old male with past medical history of GERD, who works at [employer], with no other significant past medical history presents today for evaluation of right chest pain. Patient states that he developed some right chest and flank pain about 2 weeks ago, it came on on its own. He denies any new or atypical heavy lifting or movement. He denies any inciting event. He states that he was initially gradual but over the last few days it has become quite severe. It is worse when he breathes, it is located in the right chest. He denies any cough fever or chills. He does smoke and he states that he has stopped this because of the pain. He has been taking significant amounts of ibuprofen fairly regularly and this has not improved the symptoms. He denies any dysuria or hematuria. He denies any history of kidney stones. He denies any trauma to the chest. No other complaints at this time. No recent long trips surgeries or procedures. No known history of cardiac disease. He denies any focal exertional component, but states that when he moves his right chest that notably worsens his symptoms. It is improved when he lays down on the right-hand side. Of note he was seen by his primary care provider 8 days ago, and at that time his pain appeared to be much lower in the back, it was more concern for a musculoskeletal component the low lumbar region. However now the pain is transition to the area around the scapula. There was a lung nodule noted on chest x-ray. Physical exam demonstrates mild wheezes for his breath sounds, otherwise benign lungs. History was originally slightly challenging, but pain appears to be present in the right upper chest rather than the right flank or lower back. This may be a transition of the musculoskeletal spasms that he was initially having, and rather could be a separate etiology related to his lungs in particular pneumothorax, PE less likely, cardiac disease less likely. We will evaluate for these etiologies, treat his pain with Toradol and a small dose of morphine, monitor closely and reassess. 6 PM Laboratory workup returned, no white count bandemia or left shift. Coagulation factors normal, D-dimer elevated at 551, VBG stable. Renal function normal, electrolytes normal, troponin and serial troponins are normal. Urinalysis negative for infection. Morphine and NSAID therapy and a small dose of Dilaudid did not change the patient's pain. I did go back and reassess and he still had his wheeze. This certainly increase my concern for perhaps a passive pain associated with his asthma. CT imaging shows no evidence of pulmonary emboli, dissection, pericardial effusion, or other significant abnormality. There is air trapping throughout both lungs though. Patient was given a breathing treatment and after this he had near complete resolution of the pain and discomfort in his right chest that he had been feeling. Although this was certainly not the clinical direction his initial symptomatology was pointing, it does seem to now represent the potential cause of his symptomatology. I suspect an asthma exacerbation is a notable component of his symptoms. He has stopped smoking, and we discussed this further. Considering the reactive airway disease to be the component of his symptoms we will do a short course of steroids for 5 days, with a starting dose here today. We will give Symbicort inhaler for home use, and recommend continued avoidance of tobacco products. Patient's symptoms at this time appear inconsistent with pneumonia, PE, dissection, ACS or pneumothorax. Patient is stable for discharge. No evidence of hypoxemia or other significant abnormality. I have extensively reviewed the treatment plan and discharge instructions with the patient and their family. I have addressed all patient concerns at this time. The patient and family was made aware of what symptoms to monitor for that would warrant a return to the emergency department. Discussed the plan with the patient and family, they demonstrate verbal understanding and agreement with our assessment and plan at this time. The documentation in this chart was dictated using [employer] dictation software. Please excuse any dictation errors. FINDINGS: CHEST: PULMONARY ARTERIES: There are no intraluminal filling defects to suggest acute pulmonary emboli. LUNGS: Increased hazy markings both lung reddy which is probably exaggerated the by respiratory motion and suboptimal inspiration.. There are no air bronchograms. No ominous pulmonary nodules nor pleural effusions. MEDIASTINUM: There is no hilar nor mediastinal adenopathy. CARDIAC: Heart size is upper normal. There is no pericardial effusion.Caliber of the thoracic aorta is within normal limits. No evidence of dissection. There is no significant shift of the interventricular septum. PARTIALLY VISUALIZED UPPERMOST ABDOMEN: No obvious findings OSSEOUS: No significant osseous lesions.. IMPRESSION: 1. No evidence of acute pulmonary emboli. No evidence of pulmonary infarction.No pleural effusions. There appears to be air trapping throughout both lung reddy. 2. No evidence of aortic dissection nor pericardial effusion. 3. No intrathoracic adenopathy Quality:SDOH Health Related Social Needs: Health related social needs transportation insecurity(Z59.82) PFSH All Active Problems (Updated 04/06/24 @ 18:05 by Ash Huitron DO) Chest discomfort (Acute) Asthma (Chronic) GERD (gastroesophageal reflux disease) (Chronic) Presumed, PPI helping (from TB 2' gastritis/abd pain).. with Hx PPI from pt report. Hx EGD .. [ ] need notes Lung nodule seen on imaging study (Acute) per CT, 3mm.. Annual re-check planned. History of sacroiliac joint dysfunction (Acute) Acute back pain with radiculopathy (Acute) possible L5 radiculopathy Chronic lower back pain (Chronic) Medical History (Updated 04/06/24 @ 18:05 by Ash Huitron DO) Abdominal pain resolved with time, rest, PPI COVID-19 08/20/21 ([place]) Hx of acute bronchitis 08/04/23, [place] Family History Brother Colon cancer Social History Smoking/Tobacco Use Status: Current every day Tobacco Type: cigarettes Smoking risk assessment performed?: Yes Alcohol Intake: current Alcohol Intake frequency: holidays/special occasions only Drug use: Never Substance use type: does not use Adopted: No Household members: significant other Housing: homeless Number of Children: 5 number of grandchildren: 3 Communication Needs: None Education Level: high school Do you need help understanding health information?: Never current occupation: [employer] Pets and animals: No Sexually active: Yes Do you think of yourself as: straight/heterosexual Current gender identity: male What is your relationship status?: living with partner How often do you talk on the phone with friends or family?: three or more times per week How often do you get together with friends or relatives?: never Do you belong to any clubs or organized social groups?: no Panel score (0-1 are the most socially isolated patients): 2 Jenny/Holiness: Orthodoxy Special jenny needs: No Seatbelt use: always Helmet use: Yes Drive intox or ride w/intox 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
[2024-04-06] MEDS: Ketorolac 15 MG/ML VIAL IVP (15:22)
[2024-04-06] MEDS: MORPHine 4 MG/ML SYR IVP (15:23)
[2024-04-06 15:28] LABS: Abs Immature Grans 0.07 10^3/uL (0.0-0.06); Absolute Basophil Count 0.08 10^3/uL (0.0-0.2); Absolute Eosinophil Count 0.31 10^3/uL (0.0-0.7); Absolute Lymphocyte Count 2.67 10^3/uL (1.2-3.4); Absolute Monocyte Count 0.78 10^3/uL (0.1-0.8); Absolute Neutrophil Count 6.64 10^3/uL (1.2-6.7); Basophils % 0.8 %; Eosinophils % 2.9 %; HCT 41.1 % (40.0-50.0); HGB 13.9 g/dL (13.5-17.5); Immature Grans % 0.7 %; Lymphocytes % 25.3 %; MCH 28.7 pg (27.0-33.0); MCHC 33.8 % (32.0-36.0); MCV 85 fL (80-95); Monocytes % 7.4 %; Neutrophils % 62.9 %; Platelet Count 332 10^3/uL (130-400); RBC 4.85 10^6/uL (4.36-5.78); RDW 12.3 % (11.8-14.1); RDW-SD 37.9 fL; WBC 10.55 10^3/uL (4.4-10.8)
[2024-04-06 15:31] LABS: BE (Venous) -1 mmol/L (-2-3); HCO3 (Venous) 24 mmol/L (23-28); O2 Sat (Venous) 98 %; TCO2 (Venous) 21 mmol/L (24-29); pCO2 (Venous) 40 mmHg (41-51); pH (Venous) 7.39 (7.31-7.41); pO2 (Venous) 79 mmHg
[2024-04-06 15:42] LABS: PTT Activated 24.7 sec (23.6-32.8); Prothrombin Time 9.8 sec (9.1-11.1)
[2024-04-06 15:49] LABS: ALT 24 U/L (16-63); AST 13 U/L (15-37); Albumin 3.5 g/dL (3.4-5.0); Alkaline Phosphatase 143 U/L (46-116); Anion Gap 9.2 mmol/L (3-11); BUN 11 mg/dL (7-18); Bilirubin, Total 0.28 mg/dL (0.2-1.0); CO2 24.8 mmol/L (21.0-32.0); CREATININE 0.9 mg/dL (0.70-1.30); Chloride 107 mmol/L (98-107); Estimated GFR 100.24 (mL/min/1.73m2); Glucose 128 mg/dL (74-106); Potassium 4.3 mmol/L (3.5-5.1); Sodium 141 mmol/L (136-145); Total Protein 7.3 g/dL (6.4-8.2); Troponin I 5 ng/L (<or=76)
[2024-04-06 16:05] LABS: D-Dimer 551 ng/mlFEU (<500)
--- NOTE | 2024-04-06 16:15 | DI.CT_ITS ---
Exam(s) CT CHEST PE CTA EXAM: CT CHEST PE CTA CLINICAL HISTORY: elevated dimer, right chest pain, eval for PE. TECHNIQUE: Imaging Protocol: CT angiography of the chest was performed using pulmonary embolus judith col. Multi planar reconstructions were performed. CONTRAST MATERIAL: Intravenous: Omnipaque 350 Contrast volume: 100 cc COMPARISON: CT CT CHEST LUNG CANCER SCREEN from 03/25/2024 CR XR CHEST 2V PA LATERAL from 04/06/2024 FINDINGS: CHEST: PULMONARY ARTERIES: There are no intraluminal filling defects to suggest acute pulmonary emboli. LUNGS: Increased hazy markings both lung reddy which is probably exaggerated the by respiratory adri on and suboptimal inspiration.. There are no air bronchograms. No ominous pulmonary nodules nor ple ural effusions. MEDIASTINUM: There is no hilar nor mediastinal adenopathy. CARDIAC: Heart size is upper normal. There is no pericardial effusion.Caliber of the thoracic aorta is within normal limits. No evidence of dissection. There is no significant shift of the interventri cular septum. PARTIALLY VISUALIZED UPPERMOST ABDOMEN: No obvious findings OSSEOUS: No significant osseous lesions.. IMPRESSION: 1. No evidence of acute pulmonary emboli. No evidence of pulmonary infarction.No pleural effusions. There appears to be air trapping throughout both lung reddy. 2. No evidence of aortic dissection nor pericardial effusion. 3. No intrathoracic adenopathy Findings discussed by phone with ER physician 04/06/2024 at 5:10 p.m. RADIATION DOSE DELIVERED: 143.68mGy.cm Total DLP DATA REPOSITORY: All CT scans at this facility are submitted to the National Radiology Data Registry (NRDR) Dose Index Registry (DIR) with the [employer] (A[employer]). RADIATION OPTIMIZATION: All CT scans at this facility use at least one of these dose optimization te chniques: automated exposure control; mA and/or kV adjustment per patient size (includes targeted exa ms where dose is matched to clinical indication); or iterative reconstruction.
[2024-04-06] MEDS: HYDROmorphone 2 MG/ML SYR 1 MG IVP (16:30)
[2024-04-06] MEDS: Omnipaque 350 MG/ML 100 ML BTL IJ (16:42)
[2024-04-06] MEDS: Normal Saline - Diluent 50 ML VIAL IJ (16:43)
[2024-04-06 17:06] LABS: Bilirubin Negative (Negative); Blood Negative (Negative); Clarity Clear (Clear); Glucose Negative (Negative); Ketones Negative (Negative); Leukocyte Esterase Negative (Negative); Nitrite Negative (Negative); Urobilinogen 0.2 mg/dL (Up to 0.2); pH 5.5 (5-8)
[2024-04-06 17:13] LABS: Troponin I 6 ng/L (<or=76)
[2024-04-06] MEDS: Albuterol/Ipratropium 3 ML UPD VIAL UPD (17:30)
[2024-04-06] MEDS: Lidocaine 5% Patch 1 PATCH TP (17:30)
[2024-04-06] MEDS: methylPREDNISolone SUCC 125 MG VIAL IVP (18:02)
[2024-04-06] MEDS: Budesonide/Formoterol 160/4.5 6 GM 60 PUFF INH IH (18:02)
== END 2024-04-06 18:31 | disposition home or self-care (01) ==
PROVIDERS: Emergency Provider Student in an Organized Health Care Education/Training Program; PCP Student in an Organized Health Care Education/Training Program
DX: J45.909 Unspecified asthma, uncomplicated (principal); R07.89 Other chest pain; R91.1 Solitary pulmonary nodule
CPT/HCPCS: 36415; 71275; 80053; 82805; 93005; 94640; 96374; 96375; 99285; 71046; 81003; 84484; 85025; 85379; 85610; 85730; 93010; J1171; J1885; J2270; J2919; J3490; J7620

== ENCOUNTER 2024-05-04 02:56 | Emergency (ER) | payer MEDICAID, SELFPAY ==
--- NOTE | 2024-05-04 02:45 | RT.EKG_ITS ---
APPROVED REPORT Exam: Resting ECG Reason for Exam: Difficulty breathing Patient Location: E HR:83 bpm ECG Measurements Heart Rate 83 AXIS WA 142 P 57 QRSd 87 QRS 8 QT 366 T 25 QTc 430 Conclusion Sinus rhythm...normal P axis, V-rate 60- 99 I have reviewed and interpreted ECG and agree with software generated interpretation.
[2024-05-04 03:01] VITALS: BP 149/93; PULSE 92; RESP 18; TEMP 36.4; O2SAT 97
[2024-05-04] MEDS: Albuterol/Ipratropium 3 ML UPD VIAL UPD (03:17)
[2024-05-04] MEDS: Budesonide/Formoterol 160/4.5 6 GM 60 PUFF INH IH (03:17)
--- NOTE | 2024-05-04 03:31 | ED.GENADUL_ITS ---
Discharge Plan Disposition Patient Disposition: Home Condition: Good Discharge Details Clinical Impression: COPD exacerbation, Viral URI with cough Primary Care Provider: Alisia Chapman ED Provider: Ash Huitron Home Meds and New Rx's Prescriptions: New prednisone 50 mg tablet 50 mg PO DAILY Qty: 5 0RF loratadine 10 mg tablet 10 mg PO DAILY PRNQty: 14 0RF No Action lidocaine 5 % adhesive patch,medicated 2 patch topical DAILY Qty: 30 2RF Rx Instructions: leave on most painful area for up to 12 hrs cholecalciferol (vitamin D3) 1,250 mcg (50,000 unit) capsule 1,250 mcg PO QWEEK Qty: 10 0RF esomeprazole magnesium [Nexium] 40 mg capsule,delayed release(DR/EC) 40 mg PO DAILY Qty: 90 3RF ibuprofen 600 mg tablet 600 mg PO Q8H PRN (Reason: inflammation & pain) Qty: 90 1RF Rx Instructions: Take with real food (full meal; cheese; peanut-butter) & WATER. HOLD if stomach pain. Discharge Instructions Instructions: COPD Exacerbation, Adult ED Additional Instructions: At this time your imaging does not show evidence of pneumonia. Your symptoms appear consistent with a viral upper respiratory infection and COPD exacerbation. Please continue to hold off on smoking. Take the steroid and loratadine as prescribed. Please take your Symbicort inhaler, 2 puffs every 12 hours. If you do notice it worsening of your symptoms over the next few days please return for reassessment for potential development of pneumonia. If you notice any worsening of your symptoms, or any new symptoms such as vomiting, diarrhea, fever, chills, shortness of breath, chest pain, numbness, weakness, or fainting , please return immediately to the emergency department for reevaluation. Please follow up with your primary care provider as soon as possible for reassessment and reevaluation. As always, it was a pleasure participating in your medical care today. Referrals: Alisia Chapman DO [Primary Care Provider] - [facility] General Date/Time Provider Initiated Documentation: 05/04/24 02:58 . HPI Narrative: 58-year-old male with a past medical history of GERD, reactive airway disease, presents today for evaluation of cough, malaise for 2 weeks, mild shortness of breath. Patient states he had been using his Symbicort inhaler but he ran out today and symptoms worsened once he ran out. He denies fever but admits to intermittent chills. He denies chest pain. Cough is relatively dry without significant productivity. He denies any other complaints at this time. Patient does not give any additional historical components. Related Data Home Medications ?Medication ?Instructions ?Recorded ?Confirmed lidocaine 5 % topical patch 2 patch topical DAILY #30 ea 09/01/23 05/04/24 cholecalciferol (vitamin D3) 1,250 1,250 mcg PO QWEEK #10 caps 03/29/24 05/04/24 mcg (50,000 unit) capsule ibuprofen 600 mg tablet 600 mg PO Q8H PRN inflammation & 04/02/24 05/04/24 pain #90 tabs esomeprazole magnesium 40 mg 40 mg PO DAILY #90 caps 04/19/24 05/04/24 capsule,delayed release (Nexium) loratadine 10 mg tablet 10 mg PO DAILY PRN #14 tabs 05/04/24 prednisone 50 mg tablet 50 mg PO DAILY #5 tabs 05/04/24 Previous Rx's ?Medication ?Instructions ?Recorded lidocaine 5 % topical patch 2 patch topical DAILY #30 ea 09/01/23 cholecalciferol (vitamin D3) 1,250 1,250 mcg PO QWEEK #10 caps 03/29/24 mcg (50,000 unit) capsule ibuprofen 600 mg tablet 600 mg PO Q8H PRN inflammation & 04/02/24 pain #90 tabs esomeprazole magnesium 40 mg 40 mg PO DAILY #90 caps 04/19/24 capsule,delayed release (Nexium) loratadine 10 mg tablet 10 mg PO DAILY PRN #14 tabs 05/04/24 prednisone 50 mg tablet 50 mg PO DAILY #5 tabs 05/04/24 Allergies Allergy/AdvReac Type Severity Reaction Status Date / Time Penicillins Allergy Mild GI upset Verified 05/04/24 03:00 General Stated Complaint: RespSymp ARSLAN: 3 Exam Narrative Exam Narrative: 1.Const: Well-nourished, Well-developed, appearing stated age 2.Eyes: PERRL, no conjunctival injection, and symmetrical lids. 3.ENT: Atraumatic external nose and ears. Moist MM. Neck: Symmetric, trachea midline, No thyromegaly. 4.CVS: +S1/S2, Peripheral pulses 2+ and equal in all extremities. Brisk capillary refill in all extremities. 5.RESP: Unlabored respiratory effort. Slightly diminished lung sounds and wheezes are noted. No rales or rhonchi. 6.GI: Soft, Nontender/Nondistended, No hepatosplenomegaly. No guarding or rebound. 7.MSK: Normocephalic/Atraumatic, Extremities w/o deformity or ttp No cyanosis or clubbing, Normal movement of all extremities 8.Skin: Warm, Dry. No rashes or lesions. 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 Sensation grossly intact, no focal neurologic deficits. 10.Psych: (AAO) x3. Appropriate mood and affect Course Vital Signs Vital signs: Vital Signs Temperature 36.4 C 05/04/24 03:01 Pulse 92 H 05/04/24 03:01 Respiratory Rate 18 05/04/24 03:01 Blood Pressure 149/93 H 05/04/24 03:01 Pulse Oximetry 97 05/04/24 03:01 Temperature 36.4 C 05/04/24 03:01 Temperature Source Oral 05/04/24 03:01 Pulse 92 H 05/04/24 03:01 Respiratory Rate 18 05/04/24 03:01 Respiratory Effort Short of Breath, Labored 05/04/24 03:05 Respiratory Depth Normal 05/04/24 03:05 Blood Pressure 149/93 H 05/04/24 03:01 Blood Pressure Position Sitting 05/04/24 03:01 Pulse Oximetry 97 05/04/24 03:01 Oxygen Delivery Method Room Air 05/04/24 03:01 Oxygen Flow Rate 0 05/04/24 03:01 Pain Level 5 05/04/24 03:01 Medical Decision Making 58-year-old male with a past medical history of GERD, reactive airway disease, presents today for evaluation of cough, malaise for 2 weeks, mild shortness of breath. Patient states he had been using his Symbicort inhaler but he ran out today and symptoms worsened once he ran out. He denies fever but admits to intermittent chills. He denies chest pain. Cough is relatively dry without significant productivity. He denies any other complaints at this time. Patient does not give any additional historical components. Patient still smokes regularly Exam demonstrates a well-appearing male, no significant tachycardia, fever or hypoxemia. Lungs demonstrate mild diminished breath sounds and mild wheezes. Concern for potential pneumonia. Bedside ultrasound shows no evidence of infiltrate or B-lines. EKG is benign. No evidence to suggest CHF. With the wheezes I suspect COPD exacerbation. I also suspect potential viral etiology. Patient initially refused any flu or COVID tested, but later agreed to it. Will give a new Symbicort inhaler, 60 mg dose of prednisone, and breathing treatment. Will monitor closely and reassess. Symptoms inconsistent with ACS or PE with no pleuritic chest pain or hemoptysis. 4:29 AM On reassessment patient is feeling improved. Lungs demonstrate improved movement. No hypoxemia. COVID flu and RSV are negative. Symptoms at this time appear consistent with viral upper respiratory infection and mild COPD exacerbation. With no evidence of pneumonia on ultrasound, I do not see an indication for antibiotics at this time. Will recommend a course of steroids, Symbicort inhaler, and daily loratadine to help with runny nose and congestion. If the patient does not have improvement over the next few days will recommend return for recheck for evaluation of development of pneumonia. Patient is otherwise stable. Discussed red flags for which to return. I have extensively reviewed the treatment plan and discharge instructions with the patient. I have addressed all patient concerns at this time. The patient was made aware of what symptoms to monitor for that would warrant a return to the emergency department. Discussed the plan with the patient, they demonstrate verbal understanding and agreement with our assessment and plan at this time. The documentation in this chart was dictated using [employer] dictation software. Please excuse any dictation errors. 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 with Hx PPI from pt report. Hx EGD .. [ ] need notes Lung nodule seen on imaging study (Acute) per CT, 3mm.. Annual re-check planned. History of sacroiliac joint dysfunction (Acute) Acute back pain with radiculopathy (Acute) possible L5 radiculopathy Chronic lower back pain (Chronic) Medical History (Updated 05/04/24 @ 04:31 by Ash Huitron DO) Abdominal pain resolved with time, rest, PPI COVID-19 08/20/21 ([place]) Hx of acute bronchitis 08/04/23, [place], Family History Brother Colon cancer Social History Smoking/Tobacco Use Status: Former Tobacco Use Smoking risk assessment performed?: Yes Alcohol Intake: current Alcohol Intake frequency: holidays/special occasions only Drug use: Never Substance use type: does not use Adopted: No Household members: significant other Housing: homeless Number of Children: 5 number of grandchildren: 3 Communication Needs: None Education Level: high school Do you need help understanding health information?: Never 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 Pets and animals: No Sexually active: Yes Do you think of yourself as: straight/heterosexual Current gender identity: male What is your relationship status?: living with partner How often do you talk on the phone with friends or family?: three or more times per week How often do you get together with friends or relatives?: never Do you belong to any clubs or organized social groups?: no Panel score (0-1 are the most socially isolated patients): 2 Jenny/Buddhism: Buddhist Special jenny needs: No Seatbelt use: always Helmet use: Yes Drive intox or ride w/intox 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
[2024-05-04] MEDS: predniSONE 20 MG TAB 60 MG PO (03:37)
[2024-05-04] MEDS: Inhaler, Assist Device 1 EACH MC (03:47)
[2024-05-04 04:09] LABS: COVID-19 PCR Negative (Negative); Influenza A PCR Negative (Negative); Influenza B PCR Negative (Negative); RSV PCR Negative (Negative)
[2024-05-04 04:23] LABS: Source Nasopharynx
[2024-05-04 04:36] VITALS: BP 129/69; PULSE 79; RESP 20; TEMP 36.6; O2SAT 95
[2024-05-04] MEDS: Loratidine 10 MG TAB PO (04:37)
== END 2024-05-04 04:41 | disposition home or self-care (01) ==
PROVIDERS: Emergency Provider Student in an Organized Health Care Education/Training Program; PCP Student in an Organized Health Care Education/Training Program
DX: J44.1 Chronic obstructive pulmonary disease with (acute) exacerbation (principal); J06.9 Acute upper respiratory infection, unspecified; B97.89 Other viral agents as the cause of diseases classified elsewhere; R05.9 Cough, unspecified; Z87.891 Personal history of nicotine dependence
CPT/HCPCS: 76604; 87637; 93005; 94640; 99285; 93010; 99284; J7512; J7620

== ENCOUNTER 2024-05-10 06:02 | Emergency (ER) | payer MEDICAID, SELFPAY ==
[2024-05-10 06:05] VITALS: BP 158/105; PULSE 112; RESP 18; TEMP 36.6; O2SAT 95
--- NOTE | 2024-05-10 06:14 | ED.GENADUL_ITS ---
Discharge Plan Disposition Patient Disposition: Home Condition: Stable Discharge Details Clinical Impression: Smoker, Cough, Wheezing Primary Care Provider: Alisia Chapman ED Provider: Neville Olivas [place] Meds and New Rx's Prescriptions: New albuterol sulfate [Ventolin HFA] 90 mcg/actuation Hfa Aerosol Inhaler 2 puff inhalation Q4H PRN (Reason: Shortness Of Breath Or Wheezing) Qty: 1 0RF azithromycin 250 mg tablet See Rx Instructions .ROUTE .COMPLEX Qty: 6 0RF Rx Instructions: For 250 mg dose pack: take 500 mg today (day 1), then 250 mg for 4 days (days 2-5) Continued lidocaine 5 % adhesive patch,medicated 2 patch topical DAILY Qty: 30 2RF Rx Instructions: leave on most painful area for up to 12 hrs cholecalciferol (vitamin D3) 1,250 mcg (50,000 unit) capsule 1,250 mcg PO QWEEK Qty: 10 0RF esomeprazole magnesium [Nexium] 40 mg capsule,delayed release(DR/EC) 40 mg PO DAILY Qty: 90 3RF ibuprofen 600 mg tablet 600 mg PO Q8H PRN (Reason: inflammation & pain) Qty: 90 1RF Rx Instructions: Take with real food (full meal; cheese; peanut-butter) & WATER. HOLD if stomach pain. Discontinued loratadine 10 mg tablet 10 mg PO DAILY PRNQty: 14 0RF Discharge Instructions Instructions: Quitting Smoking ED Additional Instructions: As we discussed, suspect that you probably have early stages of emphysema or COPD related to your prior smoking. It is extremely important that you stop smoking even the 4 to 5 cigarettes a day. You should continue your Symbicort, 2 puffs twice a day with spacer. You have been given an albuterol inhaler which you already use for shortness of breath and wheezing every 4 hours if necessary. A prescription for an antibiotic called azithromycin has been sent to your pharmacy and you should begin dosing today. Contact primary care and set up a follow-up appointment. Consider pulmonary function testing to confirm suspicion of COPD. Return to ED for increasing shortness of breath, mental status changes/confusion, chest pain, other concerns. Referrals: [facility] [Provider Group] - 5 days HPI General Mode of arrival: ambulatory . Date/Time Provider Initiated Documentation: 05/10/24 06:04 . Limitations to Documentation: no limitations . Information obtained by: patient, RN notes reviewed and old records reviewed . HPI Narrative: Patient returns to ED with complaint of continued cough and difficulty br eathing. He was seen here on the for same. He has been using his Symbicort inhaler as well as prednisone. There was documented that [facility] contacted him yesterday for follow-up which he apparently declined. He told me that he was unable to get a ride. Comes here this morning because he is quite short of breath. Denies fever. Denies any GI symptoms. No real chest pain just feels tight. Does not feel any improvement after the prednisone. Has told people that he no longer smokes however his clothing smells of cigarette smoke and when directly questioned about this admits he has been sneaking cigarettes. Related Data Home Medications ?Medication ?Instructions ?Recorded ?Confirmed lidocaine 5 % topical patch 2 patch topical DAILY #30 ea 09/01/23 05/10/24 cholecalciferol (vitamin D3) 1,250 1,250 mcg PO QWEEK #10 caps 03/29/24 05/10/24 mcg (50,000 unit) capsule ibuprofen 600 mg tablet 600 mg PO Q8H PRN inflammation & 04/02/24 05/10/24 pain #90 tabs esomeprazole magnesium 40 mg 40 mg PO DAILY #90 caps 04/19/24 05/10/24 capsule,delayed release (Nexium) albuterol sulfate 90 mcg/actuation 2 puff inhalation Q4H PRN 05/10/24 aerosol inhaler (Ventolin HFA) Shortness Of Breath Or Wheezing #1 inh azithromycin 250 mg tablet See Rx Instructions PO .COMPLEX #6 05/10/24 tabs Previous Rx's ?Medication ?Instructions ?Recorded lidocaine 5 % topical patch 2 patch topical DAILY #30 ea 09/01/23 cholecalciferol (vitamin D3) 1,250 1,250 mcg PO QWEEK #10 caps 03/29/24 mcg (50,000 unit) capsule ibuprofen 600 mg tablet 600 mg PO Q8H PRN inflammation & 04/02/24 pain #90 tabs esomeprazole magnesium 40 mg 40 mg PO DAILY #90 caps 04/19/24 capsule,delayed release (Nexium) albuterol sulfate 90 mcg/actuation 2 puff inhalation Q4H PRN 05/10/24 aerosol inhaler (Ventolin HFA) Shortness Of Breath Or Wheezing #1 inh azithromycin 250 mg tablet See Rx Instructions PO .COMPLEX #6 05/10/24 tabs Allergies Allergy/AdvReac Type Severity Reaction Status Date / Time Penicillins Allergy Mild GI upset Verified 05/10/24 06:09 General Stated Complaint: RespSymp ARSLAN: 3 Review of Systems Narrative: Per HPI Exam Narrative Exam Narrative: Const: WDWN male in NAD. VS per triage. HEENT: NC/AT. Normal facial exam. Neck: Supple. Trachea midline. Lungs: Normal respiratory effort. Diffuse wheezing throughout. Cor: RRR without murmur. Good radial pulses. Neuro: A+O x 3. Normal speech, mentation, gait. Cranial nerves II - XII grossly intact. No gross motor or sensory deficit. Course Vital Signs Vital signs: Vital Signs Temperature 97.9 F 05/10/24 06:05 Pulse 112 H 05/10/24 06:05 Respiratory Rate 18 05/10/24 06:05 Blood Pressure 158/105 H 05/10/24 06:05 Pulse Oximetry 95 05/10/24 06:05 Temperature 97.9 F 05/10/24 06:05 Temperature Source Temporal Artery Scan 05/10/24 06:05 Pulse 112 H 05/10/24 06:05 Respiratory Rate 18 05/10/24 06:05 Respiratory Effort Normal, Non-Labored 05/10/24 06:10 Respiratory Depth Normal 05/10/24 06:10 Blood Pressure 158/105 H 05/10/24 06:05 Blood Pressure Position Sitting 05/10/24 06:05 Pulse Oximetry 95 05/10/24 06:05 Oxygen Delivery Method Room Air 05/10/24 06:05 Oxygen Flow Rate 0 05/10/24 06:05 Procedure Smoking Cessation Patient Acknowledges Need for Cessation: Yes Comments: Discussed with patient twice during visit, total time 10 minutes. Medical Decision Making Patient presenting to ED with continued difficulty breathing and cough. He is in no distress but does have a harsh dry cough. He is mildly tachycardic. He has diffuse wheezing throughout all lung zones. He has had a noncontrast CT back in early March, recent chest x-ray and CTA of chest in late March. POCUS chest exam last week without evidence of B-lines or consolidation. CT scan does show evidence of early emphysema. Despite patient's insistence that he has not been smoking family admitted when directly questioned about the strong smell of cigarette smoke on him that he does continue to smoke to some de gree. Not clear to me where the Symbicort inhaler comes into play and it is not on his medication list. He does not have a rescue inhaler. He has not improved with prednisone. Fluvid last week was negative. It has been repeated today. I do not think he requires any further chest imaging. I am going to give him a DuoNeb treatment here. Will likely cover him with a Z-Rell at this point for at [facility]. Suspect given his history of smoking, continued smoking, evidence of emphysema on CT scan that he probably has undiagnosed early stage COPD. 7am - Patient's wheezing is essentially gone after the one DuoNeb. He still has the dry cough. His Fluvid is negative. Discussed smoking once again. Reports that he is still smoking 4 to 5 cigarettes a day. Strongly encouraged to stop smoking completely. Despite Symbicort not being on his med list he is using it. We discussed how this should be a maintenance inhaler. Unfortunately I do not know which strength he is using but he is taking 2 puffs twice a day. He is encouraged to continue this. Will provide albuterol inhaler with spacer from here to use 2 puffs every 4-6 hours for wheezing and shortness of breath. Will start him on Z-Rell, but will hold off on further steroids as he just finished 5 days of 50mg. He will likely benefit from follow-up with primary care and PFT testing to confirm diagnosis of COPD/emphysema. Return precautions provided. Medical Records Medical records reviewed: Yes I reviewed the patient's medical records. Medical records narrative: Primary care notes, diagnostic studies, ED visits dating back to beginning of March 2024. [facility] All Active Problems (Updated 05/10/24 @ 07:01 by Neville Olivas MD) Wheezing (Acute) Cough (Acute) Smoker (Acute) Viral URI with cough (Acute) Lung nodule seen on imaging study (Acute) per CT, 3mm.. Annual re-check planned. 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 with Hx PPI from pt report. Hx EGD .. 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 Pets and animals: No Sexually active: Yes Do you think of yourself as: straight/heterosexual Current gender identity: male What is your relationship status?: living with partner How often do you talk on the phone with friends or family?: three or more times per week How often do you get together with friends or relatives?: never Do you belong to any clubs or organized social groups?: no Panel score (0-1 are the most socially isolated patients): 2 Jenny/Christianity: Temple Special jenny needs: No Seatbelt use: always Helmet use: Yes Drive intox or ride w/intox 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
[2024-05-10] MEDS: Albuterol/Ipratropium 3 ML UPD VIAL UPD (06:21)
[2024-05-10 06:50] LABS: COVID-19 PCR Negative (Negative); Influenza A PCR Negative (Negative); Influenza B PCR Negative (Negative); RSV PCR Negative (Negative)
[2024-05-10 06:59] LABS: Source Nasopharynx
[2024-05-10 07:16] VITALS: BP 132/84; PULSE 103; RESP 16; TEMP 36.9; O2SAT 98
[2024-05-10] MEDS: Inhaler, Assist Device 1 EACH MC (07:16)
[2024-05-10] MEDS: Albuterol HFA 8 GM 60 PUFF INH IH (07:16)
== END 2024-05-10 07:18 | disposition home or self-care (01) ==
PROVIDERS: Emergency Provider Emergency Medicine; PCP Student in an Organized Health Care Education/Training Program
DX: R05.9 Cough, unspecified (principal); R06.2 Wheezing; F17.210 Nicotine dependence, cigarettes, uncomplicated
CPT/HCPCS: 87637; 94640; 99283; J7620

== ENCOUNTER 2024-05-13 13:11 | Emergency (ER) | payer MEDICAID, SELFPAY ==
[2024-05-13] VITALS (21 sets, daily range): BP systolic 110–186; BP diastolic 59–101; PULSE 79–96; RESP 14–23; TEMP 36.8; O2SAT 88–98
--- NOTE | 2024-05-13 14:00 | DI.CT_ITS ---
Exam(s) CT HEAD WO EXAM: CT HEAD WO CLINICAL HISTORY: MYERS after coughing, garbled speech, unknown LWK. TECHNIQUE: Imaging Protocol: Axial computed tomography images with coronal and sagittal reformatted images were created and reviewed COMPARISON: No exams were available for comparison FINDINGS: The exam is somewhat limited by motion, mostly on the inferior images.. Ventricles and Extra axial spaces: Normal in size and morphology for the patient's age. Hemorrhage: None. Cerebral parenchyma: No evidence of acute infarct or mass. Midline shift: None. Brainstem/Cerebellum: Somewhat obscured by streak artifact from motion. Calvarium: Normal. Visualized Paranasal sinuses:Significant mucous retention in the maxillary sinuses. Mucosal thickeni ng of the ethmoids and right middle nasal turbinates.. Mastoids: Clear. Soft Tissues: Unremarkable. ORBITS: Unremarkable. PITUITARY: Not enlarged. IMPRESSION: No acute intracranial process. RADIATION DOSE DELIVERED: Total DLP DATA REPOSITORY: All CT scans at this facility are submitted to the National Radiology Data Registry (NRDR) Dose Index Registry (DIR) with the [employer] (ACR). RADIATION OPTIMIZATION: All CT scans at this facility use at least one of these dose optimization te chniques: automated exposure control; mA and/or kV adjustment per patient size (includes targeted exa ms where dose is matched to clinical indication); or iterative reconstruction.
--- NOTE | 2024-05-13 14:06 | ED.GENADUL_ITS ---
Discharge Plan Disposition Patient Disposition: Home Condition: Stable Discharge Details Clinical Impression: Acute exacerbation of chronic obstructive pulmonary disease, Acute alteration in mental status Primary Care Provider: Alisia Chapman ED Provider: Stephie Lorenzana Home Meds and New Rx's Prescriptions: New prednisone 20 mg tablet 40 mg PO DAILY 4 Days Qty: 8 0RF Rx Instructions: Start on day 2 (05/14/2024) No Action lidocaine 5 % adhesive patch,medicated 2 patch topical DAILY Qty: 30 2RF Rx Instructions: leave on most painful area for up to 12 hrs cholecalciferol (vitamin D3) 1,250 mcg (50,000 unit) capsule 1,250 mcg PO QWEEK Qty: 10 0RF esomeprazole magnesium [Nexium] 40 mg capsule,delayed release(DR/EC) 40 mg PO DAILY Qty: 90 3RF ibuprofen 600 mg tablet 600 mg PO Q8H PRN (Reason: inflammation & pain) Qty: 90 1RF Rx Instructions: Take with real food (full meal; cheese; peanut-butter) & WATER. HOLD if stomach pain. albuterol sulfate [Ventolin HFA] 90 mcg/actuation Hfa Aerosol Inhaler 2 puff inhalation Q4H PRN (Reason: Shortness Of Breath Or Wheezing) Qty: 1 0RF azithromycin 250 mg tablet See Rx Instructions .ROUTE .COMPLEX Qty: 6 0RF Rx Instructions: For 250 mg dose pack: take 500 mg today (day 1), then 250 mg for 4 days (days 2-5) Discharge Instructions Instructions: Exacerbation of COPD Additional Instructions: You were seen in the emergency department today for evaluation of shortness of breath and cough as well as an alteration in your mental status. In our department a full physical examination performed, had treatment for COPD, and you need to continue your antibiotics until they are all gone, even if you start to feel better. I prescribed you a course of prednisone, which you should start taking tomorrow. You had a normal CT scan of your brain and unfortunately it is sometimes not possible to exactly know the cause of a change in mental status here in the emergency department, but at the time that you were discharged you are back to your normal state of health. We encourage you to continue to work on quitting smoking, and please follow-up with your primary care provider in the next few days to discuss this visit and any symptoms that change, worsen, or persist. Thank you for allowing us to be part of your care. HPI General Mode of arrival: ambulatory . Date/Time Provider Initiated Documentation: 05/13/24 13:45 . Limitations to Documentation: physical limitation . Information obtained by: patient and old records reviewed . HPI Narrative: HPI: This is a 58-year-old male patient presenting for evaluation of cough and shortness of breath with headache. Of note, the patient has been seen here in this emergency department 2 times in April for similar symptoms, and was a concern for the development of tobacco related COPD. He has been provided with a Symbicort and albuterol inhaler, completed a course of oral steroids, and just picked up a Z-Rell yesterday of which he has taken 2 doses. The patient reports that he was visiting a family member who was admitted on the [facility] floor at our hospital, and was prompted to seek care because he cannot stop coughing. He reports that his coughing is keeping him up at night and he has not had any sleep. The patient states that he has tried [id number] medications for this cough. The patient states that his lack of sleep is made his speech garbled, and he is indeed very difficult to understand during this provider's examination. He states that he does not look at his sputum to see what comes up when he coughs. States that he is experiencing pain in his head that is worse with coughing, unknown how many days this has been present. The patient cannot remember the last time he felt normal, and is unsure when his speech became garbled. His family member upstairs is reported to have expressed concern about his speech changes today. The patient reports that he is not experiencing fever, chest pain. Exam: Gen: Awake and alert, appears in distress, yawning and nodding off frequently during this provider's examination and seems unable to find a comfortable position HEENT: Non-icteric sclera, PERRL, conjunctiva mildly injected Neck: Supple Lungs: No apparent respiratory distress, normal respiratory effort. The patient has expiratory wheezing most audible in the bilateral bases, decreased air movement at the apices, with a frequent raspy cough appreciated during this provider's examination. No hypoxia CV: Appears well perfused, heart with regular rate and rhythm, strong distal pulse Abdomen: Non-distended, soft, nontender MSK: Moves 4 extremities without apparent limitation in ROM Skin: Visualized skin without rashes, cyanosis. Neuro: Normal Gait, no obvious focal deficits or facial asymmetry. Speaks in full, clear sentences. Full strength x 4 extremities Psych: Appropriate for situation. MDM: This is a 58-year-old male patient presenting for evaluation of shortness of breath and cough, as well as headache and garbled speech. My differential includes but is not limited to reactive airway disease exacerbation, pneumonia, bronchitis, viral URI. Regarding his headache, I did consider sequelae of viral illness, though with the combined garbled speech I am obligated to consider more serious etiologies such as intracranial hemorrhage, aneurysm, dissection, stroke. The patient does not take blood thinning medications, and unfortunately we are unable to determine a last known well time and therefore he does not meet criteria for activation of the stroke alert. I considered hypercarbia, acute intoxication and withdrawal syndromes. Considered metabolic and electrolyte derangements, anemia, dehydration. No evidence of fluid overload on my physical examination, no fever or hemodynamic instability to significantly increase my concern for sepsis or bacteremia. We will obtain laboratory studies to include CBC, CMP, magnesium, VBG, ethanol, and INR. I will obtain chest x-ray as well as a CTA brain and neck, and will provide the patient with a duo nebulizer treatment, prednisone, and Tylenol for symptomatic management. ED Course: I independently interpreted the laboratory studies, which show no anemia, or thrombocytopenia. He does have a mild leukocytosis to 13.8. The chemistry panel is without evidence of electrolyte abnormality, kidney dysfunction, or liver injury. VBG shows no acidosis or hypercarbia, troponin was low, ethanol negative. The chest x-ray was independently reviewed by myself, showing no concerning findings such as lobar pneumonia or pneumothorax. As the patient is already taking azithromycin appropriately I do not see an indication to add additional antibiotics to his course. The patient had significant difficulty laying flat for CT, and we were able to o nly capture a Noncon head CT. Reassuringly, this is without evidence of infarct or acute intracranial hemorrhage, and given that the patient's symptoms are primarily respiratory in nature I do not feel like we need to further image this patient's brain. On reassessment, the patient has had improvement in his air movement and now has diffuse expiratory wheezing in all lung reddy. A second albuterol nebulizer was provided , as well as some magnesium. Given the improvement we were able to obtain the CTA head and neck which showed no acute abnormalities to explain his change in speech. The patient rested in this emergency department, had a VBG repeated that did not show significant hypercapnia or acidosis. After resting the patient did have an improvement in his speech and seemed more alert, states that he feels more rested after his nap, and states that his cough and shortness of breath have improved significantly. He is desiring of discharge to home and at this time has had a very reassuring workup. As he is already on antibiotics, which I counseled him to continue taking until they are gone, he does not require initiation of any additional antibiotics, but I did provide him with the remainder of a prednisone burst for his COPD exacerbation. The patient has all of the inhalers that he needs, and at this time, the patient has had a full medical evaluation and is safe for discharge to home. They are hemodynamically stable, ambulatory, and tolerating PO. They are understanding of the follow-up plan and return precautions. They left our facility without incident. Stephie Lorenzana MD Related Data Home Medications ?Medication ?Instructions ?Recorded ?Confirmed lidocaine 5 % topical patch 2 patch topical DAILY #30 ea 09/01/23 05/10/24 cholecalciferol (vitamin D3) 1,250 1,250 mcg PO QWEEK #10 caps 03/29/24 05/10/24 mcg (50,000 unit) capsule ibuprofen 600 mg tablet 600 mg PO Q8H PRN inflammation & 04/02/24 05/10/24 pain #90 tabs esomeprazole magnesium 40 mg 40 mg PO DAILY #90 caps 04/19/24 05/10/24 capsule,delayed release (Nexium) albuterol sulfate 90 mcg/actuation 2 puff inhalation Q4H PRN 05/10/24 aerosol inhaler (Ventolin HFA) Shortness Of Breath Or Wheezing #1 inh azithromycin 250 mg tablet See Rx Instructions PO .COMPLEX #6 05/10/24 tabs prednisone 20 mg tablet 40 mg (2 x 20 mg) PO DAILY 4 days 05/13/24 #8 tabs Previous Rx's ?Medication ?Instructions ?Recorded lidocaine 5 % topical patch 2 patch topical DAILY #30 ea 09/01/23 cholecalciferol (vitamin D3) 1,250 1,250 mcg PO QWEEK #10 caps 03/29/24 mcg (50,000 unit) capsule ibuprofen 600 mg tablet 600 mg PO Q8H PRN inflammation & 04/02/24 pain #90 tabs esomeprazole magnesium 40 mg 40 mg PO DAILY #90 caps 04/19/24 capsule,delayed release (Nexium) albuterol sulfate 90 mcg/actuation 2 puff inhalation Q4H PRN 05/10/24 aerosol inhaler (Ventolin HFA) Shortness Of Breath Or Wheezing #1 inh azithromycin 250 mg tablet See Rx Instructions PO .COMPLEX #6 05/10/24 tabs prednisone 20 mg tablet 40 mg (2 x 20 mg) PO DAILY 4 days 05/13/24 #8 tabs Allergies Allergy/AdvReac Type Severity Reaction Status Date / Time Penicillins Allergy Mild GI upset Verified 05/13/24 13:19 General Stated Complaint: RespSymp ARSLAN: 4 Course Vital Signs Vital signs: Vital Signs Temperature 36.8 C 05/13/24 13:12 Pulse 94 H 05/13/24 13:12 Respiratory Rate 18 05/13/24 13:12 Blood Pressure 122/76 05/13/24 13:12 Pulse Oximetry 98 05/13/24 13:12 Temperature 36.8 C 05/13/24 13:12 Temperature Source Temporal Artery Scan 05/13/24 13:12 Pulse 96 H 05/13/24 13:54 Pulse Rhythm Regular 05/13/24 13:54 Pulse Strength Normal 05/13/24 13:54 Respiratory Rate 22 05/13/24 13:54 Respiratory Effort Short of Breath 05/13/24 13:58 Respiratory Depth Normal 05/13/24 13:58 Respiratory Pattern Normal 05/13/24 13:54 Blood Pressure 186/101 H 05/13/24 13:54 Blood Pressure Mean 129 05/13/24 13:54 Blood Pressure Position Sitting 05/13/24 13:12 Pulse Oximetry 97 05/13/24 13:54 Oxygen Delivery Method Room Air 05/13/24 13:54 Oxygen Flow Rate 0 05/13/24 13:54 Medical Decision Making Quality:SDOH Health Related Social Needs: No Data to Display PFSH All Active Problems (Updated 05/13/24 @ 18:49 by Stephie Lorenzana MD) Acute alteration in mental status (Acute) Acute exacerbation of chronic obstructive pulmonary disease (Acute) Wheezing (Acute) Cough (Acute) Smoker (Acute) Viral URI with cough (Acute) Lung nodule seen on imaging study (Acute) per CT, 3mm.. Annual re-check planned. 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 with Hx PPI from pt report. Hx EGD .. 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 Pets and animals: No Sexually active: Yes Do you think of yourself as: straight/heterosexual Current gender identity: male What is your relationship status?: living with partner How often do you talk on the phone with friends or family?: three or more times per week How often do you get together with friends or relatives?: never Do you belong to any clubs or organized social groups?: no Panel score (0-1 are the most socially isolated patients): 2 Jenny/Baptism: Mosque Special jenny needs: No Seatbelt use: always Helmet use: Yes Drive intox or ride w/intox operator and truck driver: No Do you feel safe at home: Yes Do you feel safe in your relationship?: Yes
[2024-05-13 14:23] LABS: Abs Immature Grans 0.23 10^3/uL (0.0-0.06); Absolute Basophil Count 0.06 10^3/uL (0.0-0.2); Absolute Eosinophil Count 0.14 10^3/uL (0.0-0.7); Absolute Lymphocyte Count 2.54 10^3/uL (1.2-3.4); Basophils % 0.4 %; HCT 39.8 % (40.0-50.0); HGB 13.5 g/dL (13.5-17.5); Immature Grans % 1.7 %; Lymphocytes % 18.3 %; MCH 28.7 pg (27.0-33.0); MCHC 33.9 % (32.0-36.0); MCV 85 fL (80-95); MPV 8.9 fL (8.0-11.0); Monocytes % 8.4 %; Neutrophils % 70.2 %; Platelet Count 344 10^3/uL (130-400); RDW 12.7 % (11.8-14.1); WBC 13.88 10^3/uL (4.4-10.8)
[2024-05-13 14:24] LABS: Absolute Monocyte Count 1.17 10^3/uL (0.1-0.8); Absolute Neutrophil Count 9.74 10^3/uL (1.2-6.7)
[2024-05-13] MEDS: predniSONE 20 MG TAB 60 MG PO (14:24)
[2024-05-13] MEDS: Albuterol/Ipratropium 3 ML UPD VIAL UPD (14:24)
[2024-05-13] MEDS: Acetaminophen 500 MG TAB 1000 MG PO (14:25)
[2024-05-13 14:27] LABS: BE (Venous) 3 mmol/L (-2-3); HCO3 (Venous) 28 mmol/L (23-28); pCO2 (Venous) 43 mmHg (41-51); pH (Venous) 7.42 (7.31-7.41); pO2 (Venous) 52 mmHg
[2024-05-13 14:28] LABS: O2 Sat (Venous) 91 %; TCO2 (Venous) 25 mmol/L (24-29)
[2024-05-13 14:33] LABS: Prothrombin Time 10.5 sec (9.1-11.1)
[2024-05-13] MEDS: Normal Saline - Diluent 50 ML VIAL IJ ×2 (14:45→18:26)
[2024-05-13] MEDS: Omnipaque 350 MG/ML 100 ML BTL 70 ML IJ ×2 (14:46→18:26)
[2024-05-13 14:49] LABS: ALT 33 U/L (16-63); AST 17 U/L (15-37); Albumin 3.6 g/dL (3.4-5.0); Alkaline Phosphatase 166 U/L (46-116); BUN 18 mg/dL (7-18); Bilirubin, Total 0.43 mg/dL (0.2-1.0); Calcium 9.4 mg/dL (8.5-10.1); Chloride 101 mmol/L (98-107); Estimated GFR 88.33 (mL/min/1.73m2); Glucose 135 mg/dL (74-106); Potassium 3.6 mmol/L (3.5-5.1); Sodium 137 mmol/L (136-145); Total Protein 7.8 g/dL (6.4-8.2); Troponin I 10 ng/L (<or=76)
[2024-05-13 14:54] LABS: ETHANOL BLOOD < 3.0 mg/dL (<10)
--- NOTE | 2024-05-13 15:11 | DI.RAD_ITS ---
Exam(s) XR CHEST 2V PA LATERAL EXAM: XR CHEST 2V PA LATERAL CLINICAL HISTORY: Cough, COPD TECHNIQUE: 2D digital imaging was performed. Two views. COMPARISON: CT CT CHEST PE CTA from 04/06/2024 CR XR CHEST 2V PA LATERAL from 04/06/2024 FINDINGS: Exam is limited by under penetration. HEART: Normal size. Aorta: Not dilated. PULMONARY VASCULATURE: Normal. MEDIASTINUM: Unremarkable. LUNGS: Grossly clear. PLEURAL SPACE: No pleural effusion or pneumothorax. BONE:Unremarkable for age. SOFT TISSUES: Unremarkable. IMPRESSION: Limited exam. No acute abnormality. DATA REPOSITORY: RADIATION DOSE DELIVERED:
[2024-05-13 15:43] LABS: Troponin I 9 ng/L (<or=76)
[2024-05-13] MEDS: Albuterol 2.5 MG/3 ML INH SOLN VIAL 5 MG UPD (15:55)
[2024-05-13] MEDS: MAGNESIUM SULFATE 2 GM/50 ML BAG IV_INF (15:59)
[2024-05-13 16:02] LABS: COVID-19 PCR Negative (Negative); Influenza A PCR Negative (Negative); Influenza B PCR Negative (Negative); RSV PCR Negative (Negative)
[2024-05-13 16:04] LABS: Source Nasopharynx
[2024-05-13 17:35] LABS: BE (Venous) 4 mmol/L (-2-3); HCO3 (Venous) 29 mmol/L (23-28); O2 Sat (Venous) 57 %; TCO2 (Venous) 26 mmol/L (24-29); pCO2 (Venous) 47 mmHg (41-51); pH (Venous) 7.39 (7.31-7.41); pO2 (Venous) 28 mmHg
--- NOTE | 2024-05-13 17:45 | DI.CT_ITS ---
Exam(s) CT BRAIN NECK CTA EXAM: CT BRAIN NECK CTA CLINICAL HISTORY: AMS. TECHNIQUE: Imaging Protocol: Axial CT angiography was performed with multi-slice acquisition and mu lti-planar and MIP reconstructions. CONTRAST MATERIAL: Intravenous: Omnipaque 350 Contrast volume:70 ml COMPARISON: CR XR CHEST 2V PA LATERAL from 05/13/[address] HEAD WO from 05/13/2024 FINDINGS: CT Head W contrast: Ventricles and Extra axial spaces: Normal in size and morphology for the patient's age. Hemorrhage: None. Cerebral parenchyma: No evidence of acute infarct or mass. Midline shift: None. Brainstem/Cerebellum: No acute findings.. Calvarium: Normal. Visualized Paranasal sinuses/Mastoids: Mucous retention within both maxillary sinuses. Mucosal thick ening of ethmoid sinuses. Soft Tissues: Unremarkable. Enhancement: Normal. CTA Brain W: Internal Carotid Arteries: Petrous: Normal. Cavernous: Mild plaque on the right. Cerebral: Normal. Middle Cerebral Arteries: Right: No aneurysm, occlusion or significant stenosis. Left: No aneurysm, occlusion or significant stenosis. Anterior Cerebral Arteries: Right: No aneurysm, occlusion or significant stenosis. Left: No aneurysm, occlusion or significant stenosis. Posterior cerebral Arteries: Right: No aneurysm, occlusion or significant stenosis. Left: No aneurysm, occlusion or significant stenosis. Vertebral Arteries: Right: No aneurysm, occlusion or significant stenosis. Left: No aneurysm, occlusion or significant stenosis. Basilar Artery: No aneurysm, occlusion or significant stenosis. CTA Neck W: Common Carotid: Right: Minimal plaque at bulb. No dissection, occlusion or significant stenosis. Left: Minimal plaque at bulb. No dissection, occlusion or significant stenosis. External Carotid: Right: No dissection, occlusion or significant stenosis. Left: No dissection, occlusion or significant stenosis. Internal Carotid: Right: No dissection, occlusion or significant stenosis. Left: No dissection, occlusion or significant stenosis. Vertebral Artery: Right: No dissection, occlusion or significant stenosis. Left: Diminutive but patent throughout. Lung Apices: No acute findings. Bones: No acute abnormality. Soft Tissues: Normal. IMPRESSION: 1. CTA brain: CTA examination of the [place] is within normal limits. 2. Head CT: Unremarkable CT Head. 3. CTA neck: Mild plaque at the common carotid bulbs without significant stenosis. No dissection.. RADIATION DOSE DELIVERED: Total DLP DATA REPOSITORY: All CT scans at this facility are submitted to the National Radiology Data Registry (NRDR) Dose Index Registry (DIR) with the [employer] (ACR). RADIATION OPTIMIZATION: All CT scans at this facility use at least one of these dose optimization te chniques: automated exposure control; mA and/or kV adjustment per patient size (includes targeted exa ms where dose is matched to clinical indication); or iterative reconstruction.
[2024-05-13 18:42] LABS: Bilirubin Negative (Negative); Blood Negative (Negative); Clarity Clear (Clear); Glucose Negative (Negative); Ketones Negative (Negative); Leukocyte Esterase Negative (Negative); Nitrite Negative (Negative); Urobilinogen 0.2 mg/dL (Up to 0.2); pH 6.5 (5-8)
[2024-05-13 18:59] LABS: *AMPHETAMINES SCREEN URINE Negative (Negative); *BARBITURATES SCREEN URINE Negative (Negative); *BENZODIAZEPINES SCREEN URINE Negative (Negative); Cannabinoids THC Negative (Negative); Cocaine Screen,Urine Positive (Negative); METHADONE URINE SCREEN Negative (Negative); OPIATES URINE SCREEN Negative (Negative)
[2024-05-13 19:02] LABS: Tricyclic Antidepressants Negative (Negative)
== END 2024-05-13 18:59 | disposition home or self-care (01) ==
PROVIDERS: Emergency Provider Emergency Medicine; PCP Student in an Organized Health Care Education/Training Program
DX: J44.1 Chronic obstructive pulmonary disease with (acute) exacerbation (principal); R41.82 Altered mental status, unspecified; F17.210 Nicotine dependence, cigarettes, uncomplicated
CPT/HCPCS: 70496; 70498; 80053; 80307; 82805; 87637; 94640; 96365; 99285; 70450; 71046; 80320; 81003; 83735; 84484; 85025; 85610; J3475; J3490; J7512; J7613; J7620